=== PATIENT | male | born 1975 | race Caucasian/White ===

== ENCOUNTER → 2017-12-04 | Outpatient (CLI) | payer OTHER ==
[2017-12-04 16:47] LABS: Appearance,Urine Clear (Clear); Bilirubin,Urine Negative (Negative); Blood,Urine Negative (Negative); Color,Urine Light Yellow; Glucose,Urine (UA) Negative (Negative); Ketones,Urine Negative (Negative); Leukocyte Esterase,Urine Negative (Negative); Nitrite,Urine Negative (Negative); Protein,Urine Negative (Negative); Urobilinogen,Urine <2.0 mg/dL (<2.0)
[2017-12-04 16:49] LABS: Basophils # (A) 0.1 k/uL (0-0.2); Basophils % (A) 0 %; Eosinophils # (A) 0.1 k/uL (0-0.7); Eosinophils % (A) 1 %; HCT 49.4 % (39.0-53.0); HGB 15.8 gm/dL (13.0-17.5); Lymphocytes # (A) 1.6 k/uL (1.0-4.8); Lymphocytes % (A) 14 %; MCH 28.6 pg (25.0-35.0); MCHC 31.9 g/dL (31.0-37.0); MCV 89.6 fL (80.0-100.0); Mean Platelet Volume 6.8; Monocytes # (A) 0.3 k/uL (0-1.0); Monocytes % (A) 3 %; Neutrophils # (A) 9.5 k/uL (1.3-7.7); Neutrophils % (A) 82 %; Platelet Count 213 k/uL (150-450); RBC 5.51 m/uL (4.30-5.90); RDW 14.3 % (11.5-15.5); WBC 11.6 k/uL (3.8-10.6)
[2017-12-04 16:57] LABS: Partial Thromboplastin Time 22.6 sec (22.0-30.0); Prothrombin Time 9.5 sec (9.0-12.0)
[2017-12-04 17:24] LABS: Anion Gap 8 mmol/L; Blood Urea Nitrogen 19 mg/dL (9-20); Calcium 9.6 mg/dL (8.4-10.2); Carbon Dioxide 28 mmol/L (22-30); Chloride 104 mmol/L (98-107); Glucose 89 mg/dL (74-99); Potassium 4.5 mmol/L (3.5-5.1); Sodium 140 mmol/L (137-145)
--- NOTE | 2017-12-04 19:29 | XR ---
EXAMINATION TYPE: XR chest 2V DATE OF EXAM: 12/04/2017 COMPARISON: Prior chest x-ray 10/24/2014 HISTORY: Preop TECHNIQUE: Frontal and lateral views of the chest are obtained. FINDINGS: There is no focal air space opacity, pleural effusion, or pneumothorax seen. The cardiac silhouette size is within normal limits. The osseous structures are intact. IMPRESSION: No acute cardiopulmonary process.
== END | disposition home or self-care (01) ==
LOC: RADXRMAIN 15:59
PROVIDERS: ATTEND Orthopaedic Surgery Orthopaedic Surgery of the Spine
DX: Z01.818 Encounter for other preprocedural examination (principal); M50.222 Other cervical disc displacement at C5-C6 level; Z01.812 Encounter for preprocedural laboratory examination
CPT/HCPCS: 36415; 71046; 80048; 81003; 85025; 85610; 85730; 86850; 86900; 86901

== ENCOUNTER 2017-12-12 06:50 | Inpatient (IN) | payer BC, OTHER ==
[2017-12-04 12:03] VITALS: BMI 31.7
[~2017-12-12 06:50] MED LIST: BACITRACIN 50,000 UNIT, POLYMYXIN B 500,000 UNIT in SODIUM CHLORIDE 0.9% IRRIGATIO 1,00... IRRIGATION ONE; DEXAMETHASONE SOD PHOSPHATE 10 MG/ML 1 ML VIAL IV ONE; FAMOTIDINE 20 MG/2 ML VIAL IV PRN; LIDOCAINE 1% 20 ML VIAL (10MG/ML) FOR IV START INTRADERMA PRN; MIDAZOLAM 2 MG/2 ML VIAL IV PRN; ONDANSETRON 4 MG/2 ML VIAL IVP ONE; SCOPOLAMINE 1.5MG/72HR PATCH TRANSDERM ONE; ceFAZolin IN SWFI 2 GM/20 ML SYRINGE IVP ONE
[2017-12-12] MEDS: LACTATED RINGERS 1,000 ML IV SCH ×2 (07:16→08:01)
[2017-12-12] MEDS ORDERED: MIDAZOLAM 2 MG/2 ML VIAL ONE (08:03)
[2017-12-12] MEDS ORDERED: SUCCINYLCHOLINE CHLORIDE VIAL 200 MG/10 ML VIAL IV ONE (08:03)
[2017-12-12] MEDS ORDERED: LIDOCAINE 1% INJ 10MG/ML (20 ML MDV) ONE (08:03)
[2017-12-12] MEDS ORDERED: ePHEDrine SULFATE/0.9% NACL/PF 50 MG/5 ML SYRINGE IV ONE (08:03)
[2017-12-12] MEDS ORDERED: PROPOFOL 10 MG/ML 20 ML VIAL IV ONE (08:03)
[2017-12-12] MEDS ORDERED: fentaNYL (PF) 50 MCG/ML 2 ML AMP ONE (08:03)
[2017-12-12] MEDS ORDERED: DEXAMETHASONE SOD PHOS (MDV) 100 MG/10 ML VIAL ONE (08:03)
[2017-12-12] MEDS ORDERED: LIDOCAINE 0.5% (PF) 5 MG/ML (50 ML SDV) SQ ONE (08:15)
[2017-12-12] MEDS ORDERED: GELATIN SPONGE,ABSORB (LARGE) 1 EACH SPONGE TOPICAL ONE (08:15)
[2017-12-12] MEDS ORDERED: THROMBIN (BOVINE) 5,000 UNIT VIAL TOPICAL ONE (08:15)
--- NOTE | 2017-12-12 09:18 | XR ---
EXAMINATION TYPE: XR cervical spine 1V DATE OF EXAM: 12/12/2017 COMPARISON: NONE HISTORY: Needle placement TECHNIQUE: Four views are submitted. FINDINGS: Surgical instrument seen overlying C5-C6 anterior disc space. Endotracheal tube noted. Hypertrophic a nd degenerative change at C5-C6. Below this level soft tissue artifact obscures visualization. IMPRESSION: 1. Intraoperative localization
[2017-12-12] MEDS ORDERED: HYDROmorphone 4 MG/ML 1 ML SYRINGE IVP PRN ×2 (10:13)
[2017-12-12] MEDS ORDERED: DIAZEPAM 5 MG TAB PO PRN (10:13)
[2017-12-12] MEDS ORDERED: HYDROcodone/APAP 5-325MG 1 EACH TAB PO PRN (10:13)
[2017-12-12] MEDS ORDERED: BENZOCAINE/MENTHOL LOZENG 1 EACH LOZENGE MUCOUS MEM PRN (10:13)
[2017-12-12] MEDS ORDERED: ONDANSETRON 4 MG/2 ML VIAL IVP PRN (10:13)
[2017-12-12] MEDS ORDERED: MAGNESIUM HYDROXIDE 2,400 MG/10 ML CUP PO PRN (10:13)
--- NOTE | 2017-12-12 10:20 | P.OP ---
Date of Procedure: 12/12/17 Preoperative Diagnosis: Herniated nucleus pulposis C56 C6 7 Degenerative disc disease C5 6 C6 7 Cervical stenosis C5 6 C6 7 Neck pain with upper extremity radiculopathy Postoperative Diagnosis: Same Anesthesia: GETA Pathology: none sent Condition: stable Disposition: PACU Description of Procedure: BRIEF OPERATIVE NOTE Preoperative Diagnosis: Herniated nucleus pulposis C5 6 C6 7, cervical stenosis C5 6 C6 7, degenerative disc disease 6 C6 7, neck pain with upper extremity radiculopathy Postoperative Diagnosis: Same Procedure: Anterior cervical decompression with discectomy C5 6 C6 7 and fusion Placement of interbody graft C5 6 C6 7 Application of anterior cervical plate C5 6 C6 7 Surgeon: Dr. Tamez Director Oracle: Taiwo Ceja is present throughout the entire the case persistence during positioning, dissection, exposure, visualization, and all crucial elements of the case as well as closure. Anesthesia: General anesthesia per Dr. Reyes Estimated blood loss: Approximately 50 mL Complications: None apparent Components implanted: K2M [place] anterior cervical plate system with Vikos interbody allograft bone graft and 1 mL of DBX bone putty Disposition: To recovery room in good stable condition. OPERATIVE INDICATIONS The patient has had long-standing issues in their neck and upper extremities. His found have a large disc herniations causing stenosis at C5 6 C6 7. His imaging findings correlated well with his neck and upper extremity symptoms and radiculopathy. The patient has been through conservative treatment. He is not having any significant benefit despite aggressive conservative treatment. We discussed various treatment options including surgery, and the patient wishes to proceed with surgery We discussed the risk, patient's alternatives and benefits of surgery including but not limited to, risk of bleeding risk of infection, risk of need for further surgery, risk of decreased, loss of motion, muscle function, malunion nonunion, hardware failure, nerve damage, paralysis, heart attack, and . OPERATIVE SUMMARY After discussing all the risks, patient alternatives and benefits at length, the patient elected to proceed with surgical intervention, signed informed consent, and presented for their procedure. The patient was seen and examined in the preoperative holding area and the surgical site was marked. The patient was given antibiotics and brought to the operating room. The patient was positioned on the operating room table in a supine position being careful to pad any bony prominences and pressure points. The patient was sedated and intubated by anesthesia in standard fashion. Once the airway and C- spine were stabilized the patient's arms were padded and tucked at her side, with her shoulders gently taped. The head was placed in a donut pad with the neck in good neutral alignment and position. We were careful to maintain the patient's cervical spine and good neutral alignment and position throughout. The patient was prepped and draped in a normal standard fashion. An appropriate timeout and keystone protocol performed. We were able to proceed with the surgery. The local wound area was infiltrated with local anesthetic. An incision was made transversely approximately 2-1/2 cm over the appropriate levels at C6. Dissection was taken down subcutaneously to the level of the platysma which was split in line with its fibers. Dissection was taken with a carotid approach, with the trachea and esophagus medial and the carotid sheath laterally. We dissected down to the anterior surface of the vertebral bodies of C5 6 and 7. Intraoperative x-ray was taken which showed a marker at the appropriate level at C5 6. With the appropriate level positively confirmed, we were able to proceed with discectomy at the appropriate levels starting at C5 6 on moving to C6 7. All of the operative levels were exposed appropriately. The patient had all their twitches back, and there was no evidence of recurrent laryngeal issue. The wound was copiously irrigated and suctioned dry as had been done periodically throughout the case. At the appropriate level/levels, starting at C5 6 and then at C6 7, I established an annulotomy with an 11 blade scalpel. A discectomy was performed with a combination of pituitary rongeurs, curettes, a high-speed bur, and Kerrison rongeurs. The posterior longitudinal ligament was taken down as were any posterior osteophytes. Note was made of significant disc herniation particular to the right side and large posterior and anterior osteophytic spurs which were removed during The decompression. This gave good central and bilateral foraminal decompression. There is no evidence of any dural tear or leak. The endplates were prepared with a high- speed bur. With the endplates in good parallel position, I was able to size for the appropriate size interbody graft. The wound was irrigated and suctioned dry the graft was prepared and malleted into position. It had good alignment and position with the anterior surface flush with the anterior surface of the vertebral bodies. This was done similarly the appropriate levels first at C5 6 and then at C6 7. With the grafts intact, I was able to measure and contour and appropriate sized plate. The plate was positioned at the midline over the appropriate levels at C5 6 and 7. Screw holes were established with a hand drill and drill guide. Screws were placed in good alignment and position with excellent bony purchase. They were seated under the locking device. The construct was checked and found to be stable. Intraoperative x-ray was taken which showed good alignment and position of the implants at the appropriate levels. There was no evidence of any dural tear or leak. Good hemostasis was maintained. The wound was copiously irrigated and suctioned dry as had been done periodically throughout the case. The platysma was closed with absorbable suture. The subcutaneous tissue was closed. The subcuticular tissue was closed with absorbable suture. The wound was cleaned and dried and dressed appropriately. A soft cervical collar was placed appropriately. The patient was woken up by anesthesia, extubated, transferred back gently to their hospital bed and brought to the recovery room in good stable condition. The patient will be admitted to the hospital for appropriate postoperative care , medical management and monitoring. We will continue to follow them closely about the postoperative course.
[2017-12-12] MEDS: HYDROmorphone 0.5 MG/0.5 ML SYRINGE IVP PRN ×4 (10:30→10:52)
--- NOTE | 2017-12-12 10:38 | XR ---
EXAMINATION TYPE: XR cervical spine 1V DATE OF EXAM: 12/12/2017 COMPARISON: NONE HISTORY: Hardware placement TECHNIQUE: One view submitted FINDINGS: Postsurgical change involving the cervical spine are somewhat limited due to overlying soft tissue artifact. Endotracheal tube noted. IMPRESSION: Postoperative change
[2017-12-12] MEDS ORDERED: ONDANSETRON 4 MG/2 ML VIAL IVP ONE (10:42)
[2017-12-12] MEDS ORDERED: LACTATED RINGERS 1,000 ML IV ONE (10:44)
[2017-12-12] MEDS: HYDROcodone/APAP 7.5-325MG 1 EACH TAB PO PRN ×3 (13:36→23:49)
[2017-12-12] MEDS: ceFAZolin IN SWFI 2 GM/20 ML SYRINGE IVP SCH ×2 (17:56→23:50)
[2017-12-12] MEDS: CYCLOBENZAPRINE 10 MG TAB PO SCH ×2 (17:56→21:58)
[2017-12-12] MEDS ORDERED: HYDROmorphone 0.5 MG/0.5 ML SYRINGE IVP PRN (20:11)
[2017-12-12 20:21] VITALS: RESP 18
[2017-12-12] MEDS: SODIUM CHLORIDE 0.9% 1,000 ML IV SCH ×2 (20:37→23:51)
[2017-12-13] MEDS: HYDROcodone/APAP 7.5-325MG 1 EACH TAB PO PRN (07:39)
[2017-12-13 08:17] VITALS: BP 102/66; PULSE 90; TEMP 98.6
[2017-12-13] MEDS: CYCLOBENZAPRINE 10 MG TAB PO SCH (08:23)
[2017-12-13] MEDS: LACTATED RINGERS 1,000 ML IV SCH (08:28)
[2017-12-13] MEDS ORDERED: SENNOSIDES-DOCUSATE SODIUM 1 EACH TAB PO SCH (09:00)
--- NOTE | 2017-12-13 10:50 | P.DS ---
Providers Date of admission: 12/12/17 06:50 Attending physician: Jaycee Tamez Primary care physician: Stated None Hospital Course: The patient presented on the day of admission as per his operative note. He underwent anterior cervical discectomy and fusion at C5 6 and C6 7 for his large disc herniation and cervical stenosis with upper extremity radiculopathy. He says that postoperatively he is doing much better. He says that on to 90% of his pain is significantly improved since his surgery in terms of his neck and his arms. He has some pain posteriorly at his neck and some soreness around his throat as expected. He has been able to tolerate his soft diet and ambulatory in his room and voiding freely. Physical Exam The incision site is clean dry and intact. There is no erythema no drainage. There is no purulence no evidence of infection. His neck is soft and supple Abdomen soft and nontender. Chest has good excursion with deep inspiration and expiration. The patient has active and passive range of motion intact at the upper and lower extremities. There is no acute change in neurologic status. Hospital Course Postoperative day #1 status post anterior cervical discectomy and fusion at C56 and C6 7 for large disc herniation with stenosis at those levels with neck pain and upper extremity radiculopathy. Patient is improving very well pus far and is happy with his results thus far. The patient has been making good progress postoperatively. They have completed the prophylactic antibiotics without any signs or symptoms of infection. The patient has been able to advance their diet, and is tolerating diet adequately. The pain was initially controlled with IV medications and is now controlled appropriately with oral medications. The patient has been able to increase their mobilization. The patient has progressed appropriately. I think they are in good stable condition for discharge today. They will be sent home with appropriate prescriptions. I answered their questions to the best of my ability in a language that they can understand and they are agreeable with the plan. They will follow up as directed In approximately 2 weeks or sooner if he is having a problem. Patient Condition at Discharge: Good Plan - Discharge Summary Discharge Rx Participant: Yes New Discharge Prescriptions: New HYDROcodone/APAP 7.5-325MG [Stryker 7.5-325] 1 tab PO Q6HR PRN #90 tab PRN Reason: Pain No Action HYDROcodone/APAP 7.5-325MG [Stryker 7.5-325] 1 tab PO Q6HR PRN PRN Reason: Pain Cyclobenzaprine [Flexeril] 10 mg PO TID #15 tab Dexamethasone 0.75 mg PO DAILY #12 tab Varenicline [Chantix Starter Pack] 0.5 mg PO BID Discharge Medication List Cyclobenzaprine [Flexeril] 10 mg PO TID #15 tab 10/24/17 [Rx] Dexamethasone 0.75 mg PO DAILY #12 tab 10/24/17 [Rx] HYDROcodone/APAP 7.5-325MG [Stryker 7.5-325] 1 tab PO Q6HR PRN 10/24/17 [History] Varenicline [Chantix Starter Pack] 0.5 mg PO BID 12/12/17 [History] HYDROcodone/APAP 7.5-325MG [Stryker 7.5-325] 1 tab PO Q6HR PRN #90 tab 12/13/17 [ Rx] Follow up Appointment(s)/Referral(s): Jaycee Tamez DO [Doctor of Osteopathic Medicine] - 2 Weeks (With Taiwo Ovalle at Dr. Tamez's office) Patient Instructions/Handouts: *Surgery [facility] - ([facility]) Cervical Surgery Discharge Instructions Activity/Diet/Wound Care/Special Instructions: May shower with waterproof Tegaderm intact. Keep site clean. On Sunday May shower with area uncovered, but leave Steri-Strips intact and allow them to fray off on their own. Do not soak in a tub. May ambulate to tolerance. Avoid heavy or rigorous activity. No overhead work. No repetitive bending twisting or lifting. Discharge Disposition: HOME SELF-CARE
== END 2017-12-13 11:50 | disposition home or self-care (01) | DRG 473 ==
LOC: 2ORMAIN 06:50 → 3SUR 10:12
PROVIDERS: ADMIT Orthopaedic Surgery Orthopaedic Surgery of the Spine; ATTEND Orthopaedic Surgery Orthopaedic Surgery of the Spine
PROC: 0RT30ZZ Resection of Cervical Vertebral Disc, Open Approach (ICD-10-PCS; 2017-12-12)
PROC: 4A11X4G Monitoring of Peripheral Nervous Electrical Activity, Intraoperative, External Approach (ICD-10-PCS; 2017-12-12)
PROC: 0RG20A0 Fusion of 2 or more Cervical Vertebral Joints with Interbody Fusion Device, Anterior Approach, Anterior Column, Open Approach (ICD-10-PCS; principal; 2017-12-12 08:00)
DX: M50.122 Cervical disc disorder at C5-C6 level with radiculopathy (principal); M48.02 Spinal stenosis, cervical region; M43.12 Spondylolisthesis, cervical region; I10 Essential (primary) hypertension; F32.9 Major depressive disorder, single episode, unspecified; M54.6 Pain in thoracic spine; F17.200 Nicotine dependence, unspecified, uncomplicated; Z87.11 Personal history of peptic ulcer disease; Z79.899 Other long term (current) drug therapy
CPT/HCPCS: 72020; 86850; 86900; 86901; 94760

== ENCOUNTER → 2020-05-11 | Outpatient (CLI) | payer OTHER ==
--- NOTE | 2020-05-11 21:50 | MR ---
EXAMINATION TYPE: MR cervical spine wo/w con DATE OF EXAM: 05/11/2020 COMPARISON: 12/14/2015 HISTORY: Pain and burning in shoulders. Hx of Fusion Dec 2017 CONTRAST: Standard multiplanar, multisequence MRI departmental protocol utilizing 10 mL intravenous Gadavist ga dolinium contrast. Cervical vertebra have normal alignment. There is metal artifact from anterior fusion surgery from C5 to C7. Disc spaces are fairly normal. Cervical spinal cord has normal signal pattern. There is no ed matt. There is no spinal stenosis. There is no cervical paraspinal mass. Posterior elements are intact . I see no focal bone destruction. The brainstem appears intact. Contrast images show no pathologic enhancement. IMPRESSION: Anterior fusion surgery. No spinal stenosis. No fracture. Normal-appearing cervical spinal cord. No e vidence of complicating process.
== END | disposition home or self-care (01) ==
LOC: RADMRIMAIN 15:26
PROVIDERS: ATTEND Orthopaedic Surgery Orthopaedic Surgery of the Spine
DX: M50.10 Cervical disc disorder with radiculopathy, unspecified cervical region (principal); M43.12 Spondylolisthesis, cervical region; M50.30 Other cervical disc degeneration, unspecified cervical region; M47.814 Spondylosis without myelopathy or radiculopathy, thoracic region; F17.299 Nicotine dependence, other tobacco product, with unspecified nicotine-induced disorders; Z48.89 Encounter for other specified surgical aftercare; Z98.1 Arthrodesis status
CPT/HCPCS: 72156; A9585

== ENCOUNTER → 2021-12-10 | Outpatient (CLI) | payer OTHER ==
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
== END | disposition home or self-care (01) ==
LOC: RADMRIMAIN 09:35
PROVIDERS: ATTEND Orthopaedic Surgery Orthopaedic Surgery of the Spine
DX: M54.2 Cervicalgia (principal)
CPT/HCPCS: 72156; A9585

== ENCOUNTER → 2021-12-29 | Outpatient (CLI) | payer OTHER ==
--- NOTE | 2021-12-29 14:30 | P.CON ---
Consult Note - . Consult date: 12/29/21 Assessment/Plan:: HISTORY OF PRESENT ILLNESS: 46 yr old male as a referral from Dr. Tamez presents today with neck pain for the past year due to disc bulges, spondylolisthesis, mild spinal canal stenosis and facet arthropathy for evaluation. Pt states his neck pain is localized to the middle aspect of his cervical spine, constant, achy, at a 6 /10 in intensity with radiation of sharp pain towards the right side of his neck and burning pain towards his left shoulder. Pain is provoked with extension of the neck and lifting without extremities. Pain is relieved with medications, topicals, injections in the past, physical therapy 2 months ago, chiropractic treatments, daily workout regimen, repositioning and rest. PMH: OA, GERD PSH: ACDF (2018) SH: Former tobacco user. Occassional ETOH use. No illicit drug use. FH: Non contributory All: NKDA Meds: See list REVIEW OF ORGAN SYSTEMS: CONSTITUTIONAL: No fevers or chills. No recent weight loss. HEENT: No visual acuity loss, eye pain, difficulties with hearing. No nosebleeds. No difficulty swallowing. RESPIRATORY: Denies any troubles with breathing or dyspnea on exertion. CARDIOVASCULAR: Denies any chest pain, palpitations, or recent heart attacks. GASTROINTESTINAL: Denies fatty food intolerance. Has change in bowel habits and gas bloat. GENITOURINARY: Denies any blood in urine. Has increased urinary frequency. NEUROLOGICAL: + numbness and tingling along the distal extremities. No seizure disorders or headaches. MUSCULOSKELETAL: + back pain SKIN: No skin cancer. No rash. PSYCHIATRIC: Denies current depression or suicidal thoughts. ENDOCRINE: Denies current thyroid disorders. Denies any blood sugar glucose intolerance. HEME/LYMPHATIC: Denies any lumps and bumps around the neck. History of deep venous thrombosis. ALLERGY/IMMUNOLOGY: No immunoglobulin therapy. No immune deficiencies. BREAST: Denies current breast lumps, pain or nipple discharge. Physical Examinations : Constitutional : Cooperative , not in acute distress . HEENT: Neck supple. No Lymphadenopathy. Normal thyroid size . Eyes no ptosis , no icterus, no photophobia . Hearing intact. Normal oropharynx. No Thrush. Respiratory : Chest clear to auscultations bilaterally. No wheezing. No rhonchi. Cardiovascular : Regular rate and rhythm , S1 / S2. No S3 . No S4. Gastrointestinal : Abdomen soft. No tenderness. Bowel sounds x 4. No organomegaly . Genitourinary : Deferred. Neurologic : Cranial nerve II to XII intact. No focal neurological deficits. Psychiatric : alert & oriented x 3. Matching mood & appropriate affect. Judgment & insight intact. Lymphatic No Lymphadenopathy. Musculoskeletal : Cervical Spine Motor strength in the deltoid and biceps: Normal right side. Normal Left side Motor strength biceps and the wrist extensors: Normal right side . Normal left side Motor strength in the triceps muscle: Normal right side. Normal left side Deep tendon reflexes: Normal at the biceps. Normal at Brachioradialis. Normal at triceps Mild vertebral body tenderness over C4, C5, C6 Cervical facet loading test: positive bilaterally over C5-C6, C6-C7 with jump reflex Spurling test: positive bilaterally Neck distraction test: positive bilaterally Paula sign: positive bilaterally Lumbar spine Motor strength lower extremities ,thigh and legs 5/5 Right side , 5/5 Left side Deep tendon reflexes : Normal Knee Jerk. Normal Ankle Jerk Vertebral body tenderness over Lumbar facet Loading Test: positive Right / positive Left Range of motion of the lumbar spine Flexion 30 degrees, extension 10 degrees Straight Leg Raise test: Left/ Right positive at degree Rosanna test: positive right / positive left. Severe tenderness over the Sacroiliac joint on the Right / Left sides Gaenslen test: positive bilaterally Seated flexion test: positive bilaterally. Imaging: MRI of the cervical spine without contrast from 12/10/21 reviewed Assessment/ Plan : Recommendation of facet block of the medial branches C5-C6/C6-C7 May need a series of procedures up until RFA to obtain optimal pain relief Risks, benefits of procedure discussed and patient verbalized understanding. Denies anti- coagulant use. Denies medical history of DM type II All questions answered. I have spent greater than 50 minutes on patient care today. Dr Parker was available by phone for the evaluation of this patient. The time was used to review the medical records including relevant urine studies and Prescription history (MAPs), review of the available imaging, evaluation and examination of the patient, coordination of care with the medical staff and if applicable referring physicians, as well as creation of the medical record PQRS Measure Charge Sheet PQRS Narrative: Smoking Status Current every day smoker Pain Intensity [Neck] 6 Scale Used Numeric (1 - 10) Hx Alcohol Use (MH) No Home Medications: Ambulatory Orders Cyclobenzaprine [Flexeril] 10 mg PO DIRECTED PRN 12/12/21
[2021-12-29 15:49] VITALS: BP 154/102; PULSE 82; RESP 18; TEMP 98.3
== END ==
LOC: PNWHC3 13:33
PROVIDERS: ATTEND Physician Assistant Medical
DX: M50.20 Other cervical disc displacement, unspecified cervical region (principal); M43.12 Spondylolisthesis, cervical region; M48.02 Spinal stenosis, cervical region; M19.90 Unspecified osteoarthritis, unspecified site; F17.200 Nicotine dependence, unspecified, uncomplicated
CPT/HCPCS: 99211

== ENCOUNTER 2022-05-12 12:44 | Day surgery (SDC) | payer OTHER ==
[2022-05-11 08:48] VITALS: BMI 46.7
[~2022-05-12 12:44] MED LIST changes: -BACITRACIN 50,000 UNIT, POLYMYXIN B 500,000 UNIT in SODIUM CHLORIDE 0.9% IRRIGATIO 1,00... IRRIGATION ONE; -DEXAMETHASONE SOD PHOSPHATE 10 MG/ML 1 ML VIAL IV ONE; -FAMOTIDINE 20 MG/2 ML VIAL IV PRN; +LACTATED RINGERS 1,000 ML IV SCH; +LIDOCAINE 1% (10MG/ML) FOR IV START INTRADERMA PRN; -LIDOCAINE 1% 20 ML VIAL (10MG/ML) FOR IV START INTRADERMA PRN; -MIDAZOLAM 2 MG/2 ML VIAL IV PRN; -ONDANSETRON 4 MG/2 ML VIAL IVP ONE; -SCOPOLAMINE 1.5MG/72HR PATCH TRANSDERM ONE; -ceFAZolin IN SWFI 2 GM/20 ML SYRINGE IVP ONE
[2022-05-12 13:06] VITALS: TEMP 97.9
--- NOTE | 2022-05-12 13:26 | P.PCN ---
Date of Procedure: 05/12/22 Procedure(s) Performed: Bilateral cervical medial branch block at C5 6, C6-C7 #1 Description of Procedure: Procedure: Cervical Medial Branch Block at bilateral C5 6, C6-C7 #1 Indications: Neck Pain Diagnosis: Cervical spondylosis without myelopathy Imaging: Fluoroscopy was used, images where saved to the medical record Anesthesia: Versed per anesthesia record Description of procedure: The patient was seen and examined in the PO. Procedure risks and benefits were fully reviewed with patient. The patient understands this is a diagnostic as well as a therapeutic procedure and that the goal of the procedure is to inject medication on to the medial branch or small nerves that go into the facet joints. In this way, we can hopefully identify which of these joints, if any, may be contributing to their pain. Informed consent for the procedure was obtained. The patient was taken into the office fluoroscopy procedure room and placed supine on the table. Vital signs were closely monitored during the procedure. The skin over the area was prepped with chlorhexidine and draped in usual sterile manner. Sterile technique was observed throughout procedure. Under fluoroscopic guidance, the target injection areas of the the above noted level's medial branches were visualized in lateral views. Using biplanar fluoroscopy, a 25 gauge 1.5 inch needle was inserted into proper position where the tip of the needle was located at the midpoint of the quadrangle at each level. After negative aspiration for blood and CSF, 0.5cc of 0.5 % Ropivacaine was injected into each of the targeted areas. The needles were withdrawn intact. No complications were noted during the procedure. The patient tolerated procedure well. The patient was placed in supine position and transferred to the recovery area for observation and remained stable until discharged home. Home discharge instructions given to the patient by the staff. The patient was reexamined prior to discharge. Follow up/plan: I have discussed the diagnostic nature of the procedure performed today with the patient in preoperative area. I've explained the possibility for repeating this injection if he has significant analgesia from the #1 procedure. We discussed potential need for radiofrequency ablation in the future as well.
[2022-05-12] MEDS ORDERED: ROPIVACAINE 5 MG/ML 20 ML AMPULE ONE (13:31)
[2022-05-12] MEDS ORDERED: MIDAZOLAM 2 MG/2 ML VIAL ONE (13:32)
[2022-05-12] MEDS ORDERED: IV FLUID CONTINUATION 1,000 ML IV ONE ×2 (13:47)
[2022-05-12 14:29] VITALS: BP 142/97; PULSE 67; RESP 18
--- NOTE | 2022-05-12 15:19 | FL ---
Fluoroscopy HISTORY: Pain 8 seconds fluoroscopy time supplied to the referring clinician. 6 intraoperative C-arm images docume nt the procedure. See dictated report from anesthesia.
== END 2022-05-12 14:35 | disposition home or self-care (01) ==
LOC: ORPAIN 12:44
PROVIDERS: ATTEND Hospitalist
DX: M47.812 Spondylosis without myelopathy or radiculopathy, cervical region (principal); F17.290 Nicotine dependence, other tobacco product, uncomplicated; K21.9 Gastro-esophageal reflux disease without esophagitis; Z79.891 Long term (current) use of opiate analgesic; Z79.899 Other long term (current) drug therapy
CPT/HCPCS: 64490; 64491; J2250; J2795

== ENCOUNTER 2022-05-26 07:04 | Observation (INO) | payer OTHER ==
[2022-05-26] MEDS ORDERED: ASPIRIN 81 MG PO STA (07:16)
--- NOTE | 2022-05-26 07:18 | ED ---
Chest Pain HPI - General Chief Complaint: Chest Pain Stated Complaint: chest pain Time Seen by Provider: 05/26/22 07:11 Source: patient, RN notes reviewed Mode of arrival: wheelchair Limitations: no limitations - History of Present Illness Initial Comments: 46-year-old male presents emergency Department chief complaint of chest pain. Patient states his been having some intermittent symptoms last couple weeks and which she had recent viral he had hypertension that she is PCP yesterday who ordered some labs, medications. Patient states that coronary symptoms worsen states he feels more fatigued, having increasing chest pressure, pain. States that it's centralized chest pain region. Patient denies any prior cardiac disease. Patient denies fevers chills no cough or cold like symptoms. Patient denies any nausea vomiting diarrhea constipation patient states that he noticed some swelling of his legs. Denies any history of DVT or PE. Patient offers no other complaints. - Related Data Home Medications Medication Instructions Recorded Confirmed Cyclobenzaprine [Flexeril] 10 mg PO BID PRN 12/12/21 05/26/22 HYDROcodone/APAP 5-325MG [[place] 1 tab PO BID PRN 05/11/22 05/26/22 5-325] lisinopriL [Prinivil] 10 mg PO DIRECTED 05/26/22 05/26/22 Allergies Allergy/AdvReac Type Severity Reaction Status Date / Time No Known Allergies Allergy Verified 05/26/22 07:57 Review of Systems ROS Statement: Those systems with pertinent positive or pertinent negative responses have been documented in the HPI. ROS Other: All systems not noted in ROS Statement are negative. Past Medical History Past Medical History: GERD/Reflux, Hypertension, Osteoarthritis (OA) Additional Past Medical History / Comment(s): pain "middle of back, L shoulder blade and down left arm into hand" History of Any Multi-Drug Resistant Organisms: None Reported Past Surgical History: Orthopedic Surgery Additional Past Surgical History / Comment(s): RT WRIST ganglion cyst removal. PAIN CLINIC INJECTIONS-. EGD. NECK SURGERY- Past Anesthesia/Blood Transfusion Reactions: Previous Problems w/ Anesthesia Additional Past Anesthesia/Blood Transfusion Reaction / Comment(s): WOKE UP DURING WRIST SX Past Psychological History: Depression Smoking Status: Vaper Past Alcohol Use History: Rare Past Drug Use History: None Reported - Past Family History Mother Family Medical History: Cancer, Hypertension Additional Family Medical History / Comment(s): skin CA removed General Exam Limitations: no limitations General appearance: alert, in no apparent distress Head exam: Present: atraumatic, normocephalic, normal inspection Eye exam: Present: normal appearance, PERRL, EOMI. Absent: scleral icterus, conjunctival injection, periorbital swelling ENT exam: Present: normal exam, mucous membranes moist Neck exam: Present: normal inspection, full ROM. Absent: tenderness, meningismus, lymphadenopathy Respiratory exam: Present: normal lung sounds bilaterally. Absent: respiratory distress, wheezes, rales, rhonchi, stridor Cardiovascular Exam: Present: regular rate, normal rhythm, normal heart sounds. Absent: systolic murmur, diastolic murmur, rubs, gallop, clicks GI/Abdominal exam: Present: soft, normal bowel sounds. Absent: distended, tenderness, guarding, rebound, rigid Neurological exam: Present: alert, oriented X3, CN II-XII intact, reflexes normal. Absent: motor sensory deficit Skin exam: Present: warm, dry, intact, normal color. Absent: rash Course Vital Signs 05/26/22 05/26/22 05/26/22 07:05 07:45 08:15 Temperature 97.8 F Pulse Rate 74 66 66 Respiratory 18 18 20 Rate Blood Pressure 186/123 150/110 148/106 O2 Sat by Pulse 97 95 96 Oximetry Chest Pain MDM - MDM 46-year-old male presented for chest pain. Patient's been having increasing symptoms, fatigue, hypertension. Patient will be admitted for cardiac rule out including cardiogram, cartilage evaluation, repeat troponin. Disposition Clinical Impression: Chest pain, Hypertension Disposition: ADMITTED IP TO THIS [facility] Condition: Fair Referrals: Nonstaff,Physician [REFERRING] - 1-2 days Time of Disposition: 08:46
[2022-05-26 07:35] LABS: Basophils # (A) 0.1 k/uL (0-0.2); Basophils % (A) 1 %; Eosinophils # (A) 0.2 k/uL (0-0.7); Eosinophils % (A) 2 %; HGB 16.8 gm/dL (13.0-17.5); Lymphocytes # (A) 2.4 k/uL (1.0-4.8); Lymphocytes % (A) 33 %; MCH 28.4 pg (25.0-35.0); MCHC 33.5 g/dL (31.0-37.0); MCV 84.7 fL (80.0-100.0); Mean Platelet Volume 6.8; Monocytes # (A) 0.5 k/uL (0-1.0); Monocytes % (A) 7 %; Neutrophils # (A) 3.9 k/uL (1.3-7.7); Neutrophils % (A) 55 %; Platelet Count 202 k/uL (150-450); RBC 5.91 m/uL (4.30-5.90); RDW 12.6 % (11.5-15.5); WBC 7.1 k/uL (3.8-10.6)
[2022-05-26 07:47] LABS: ALT 36 U/L (4-49); African American GFR (CKD) >90 (>60 ml/min/1.73 sqM); Albumin 4.7 g/dL (3.5-5.0); Anion Gap 8 mmol/L; Blood Urea Nitrogen 14 mg/dL (9-20); Calcium 9.1 mg/dL (8.4-10.2); Carbon Dioxide 22 mmol/L (22-30); Chloride 112 mmol/L (98-107); Glucose 112 mg/dL (74-99); Lipase 97 U/L (23-300); Non-African American GFR(CKD) >90 (>60 ml/min/1.73 sqM); Sodium 142 mmol/L (137-145); Total Bilirubin 0.8 mg/dL (0.2-1.3); Total Protein 7.5 g/dL (6.3-8.2)
[2022-05-26 07:50] LABS: Partial Thromboplastin Time 25.4 sec (22.0-30.0)
[2022-05-26 08:06] LABS: Potassium 4.5 mmol/L (3.5-5.1)
[2022-05-26 08:07] LABS: AST 37 U/L (17-59); Alkaline Phosphatase 55 U/L (38-126); Magnesium 2.2 mg/dL (1.6-2.3)
--- NOTE | 2022-05-26 08:14 | XR ---
EXAMINATION TYPE: XR chest 2V DATE OF EXAM: 05/26/2022 COMPARISON: Chest x-ray 12/04/2017 HISTORY: Chest pain TECHNIQUE: Frontal and lateral views of the chest are obtained. FINDINGS: There is no focal air space opacity, pleural effusion, or pneumothorax seen. The cardiac silhouette size is within normal limits. The osseous structures are intact, patient shows postop ch angel to the cervical spine. There are overlying cardiac leads. IMPRESSION: No acute cardiopulmonary process.
[2022-05-26] MEDS ORDERED: ENALAPRILAT 1.25 MG/ML 1 ML VIAL IVP STA (08:46)
[2022-05-26] MEDS ORDERED: NITROGLYCERIN SL TABS 0.4 MG TAB SUBLINGUAL PRN (08:49)
[2022-05-26] MEDS ORDERED: HYDROcodone/APAP 5-325MG 1 EACH TAB PO PRN (08:50)
[2022-05-26] MEDS ORDERED: CYCLOBENZAPRINE 10 MG TAB PO PRN (08:50)
[2022-05-26] MEDS ORDERED: lisinopriL 10 MG TAB PO SCH (10:00)
[2022-05-26] MEDS ORDERED: ATORVASTATIN 80 MG TAB PO STA (10:42)
[2022-05-26] MEDS ORDERED: ALPRAZolam 0.5 MG TAB PO PRN (10:42)
[2022-05-26] MEDS ORDERED: ALPRAZolam 0.25 MG TAB PO PRN (10:42)
[2022-05-26] MEDS ORDERED: SODIUM CHLORIDE 0.9% 1,000 ML in EMPTY BAG 1 BAG IV SCH (10:45)
[2022-05-26 11:07] VITALS: RESP 18
--- NOTE | 2022-05-26 11:56 | P.CRDCN ---
History of Present Illness History of present illness: HISTORY OF PRESENTING ILLNESS This is a pleasant 46-year-old male with past medical history of hypertension, neck/spine injury s/p C4-C7 fusions in the past, chronic nicotine dependence. He does not follow with a correctional program officer. We have been asked to see the patient in consultation for chest pain. Patient presents emergency department with complaints of chest tightness. He states he began to have a chest "pinching" about 1 month ago. He states he has not seen a doctor in a long time. He established a primary care provider yesterday, Dr. Da Silva and was prescribed Lisinopril (has not taken the prescription yet). This morning around 5:00am, patient began to have chest tightness and chest pressure. It is nonradiating, nonexertional. He had associated mild shortness of breath and diaphoresis. It lasted for a few hours, he presents to the emergency department for further evaluation. His blood pressure to to be elevated at 186/123. He was given IV Vasotec 1.25 mg. He had some improvement in his symptoms. He had re-occurrence of chest discomfort and was give sublingual nitro, his chest pressure resolved after nitro was given. He denies any history of CAD, IA, Stroke or Diabetes. He current smokes vapes. Denies any alcohol or illicit drug use. Denies family history of heart disease DIAGNOSTICS * EKG reveals sinus rhythm, heart rate 69, mild ST depression in inferior leads. * Telemetry tracings at bedside in ER reveal sinus rhythm * Chest xray no acute cardiopulmonary process * Laboratory reviewed, initial troponin negative, CBC unremarkable, sodium 142, potassium 4.5, BUN 14, serum creatinine 0.7, magnesium 2.2, proBNP 28, d-dimer negative * Current home cardiac medications include lisinopril 10 mg daily REVIEW OF SYSTEMS At the time of my exam: CONSTITUTIONAL: Denies fever or chills. Reports diaphoresis CARDIOVASCULAR: + chest pain, Denies shortness of breath, orthopnea, PND or palpitations. RESPIRATORY: Denies cough. GASTROINTESTINAL: Denies abdominal pain, diarrhea, constipation, nausea or vomiting. MUSCULOSKELETAL: Denies myalgias. NEUROLOGIC: Denies numbness, tingling, headacbe or weakness. ENDOCRINE: Denies fatigue, weight change, polydipsia or polyurina. GENITOURINARY: Denies burning, hematuria or urgency with micturation. HEMATOLOGIC: Denies history of anemia or bleeding. PHYSICAL EXAMINATION Blood pressure 133/96, heart rate 65, afebrile, saturation 96% on room air CONSTITUTIONAL: No apparent distress. HEENT: Head is normocephalic. Pupils are equal, round. Sclerae anicteric. Mucous membranes of the mouth are moist. No JVD. No carotid bruit. CHEST EXAMINATION: Lungs are clear to auscultation. No chest wall tenderness is noted on palpation or with deep breathing. HEART EXAMINATION: Regular rate and rhythm. S1, S2 heard. No murmurs, gallops or rub. ABDOMEN: Soft, nontender. Positive bowel sounds. EXTREMITIES: 2+ peripheral pulses, no lower extremity edema and no calf tenderness. NEUROLOGIC EXAMINATION: Patient is awake, alert and oriented x3. ASSESSMENT Chest pain, relief with nitro, mild ST depression noted on EKG concerning for unstable angina Hypertension History of neck surgery, chronic neck pain Chronic nicotine dependence PLAN Trend troponins Obtain 2D echocardiogram and doppler study to assess cardiac structure and function. Continue Lisinopril, monitor BP Aspirin, statin Lipid panel Check TSH Plan for cardiac catheterization today with Dr. Thomas Keep NPO I have discussed the risks, benefits and alternative therapies for the above- mentioned procedure and for both sedation/analgesia as well as necessary blood product administration, if indicated, as they pertain to this patient. The patient has indicated understanding and acceptance of the risks and procedures discussed. Questions have been answered appropriately and he is agreeable to move forward with the above-stated procedure. Further recommendations based on clinical course Nurse practitioner note has been reviewed by physician. Signing provider agrees with the documented findings, assessment, and plan of care. Past Medical History Past Medical History: GERD/Reflux, Hypertension, Osteoarthritis (OA) Additional Past Medical History / Comment(s): pain "middle of back, L shoulder blade and down left arm into hand" History of Any Multi-Drug Resistant Organisms: None Reported Past Surgical History: Orthopedic Surgery Additional Past Surgical History / Comment(s): RT WRIST ganglion cyst removal. PAIN CLINIC INJECTIONS-. EGD. NECK SURGERY- Past Anesthesia/Blood Transfusion Reactions: Previous Problems w/ Anesthesia Additional Past Anesthesia/Blood Transfusion Reaction / Comment(s): WOKE UP DURING WRIST SX Past Psychological History: Depression Smoking Status: Vaper Past Alcohol Use History: Rare Past Drug Use History: None Reported - Past Family History Mother Family Medical History: Cancer, Hypertension Additional Family Medical History / Comment(s): skin CA removed Medications and Allergies Home Medications Medication Instructions Recorded Confirmed Type Cyclobenzaprine [Flexeril] 10 mg PO BID PRN 12/12/21 05/26/22 History HYDROcodone/APAP 5-325MG [[place] 1 tab PO BID PRN 05/11/22 05/26/22 History 5-325] lisinopriL [Prinivil] 10 mg PO DIRECTED 05/26/22 05/26/22 History Allergies Allergy/AdvReac Type Severity Reaction Status Date / Time No Known Allergies Allergy Verified 05/26/22 07:57 Physical Exam Vitals: Vital Signs Temp Pulse Resp BP Pulse Ox 05/26/22 09:10 68 18 146/111 99 05/26/22 08:15 66 20 148/106 96 05/26/22 07:45 66 18 150/110 95 05/26/22 07:05 97.8 F 74 18 186/123 97 Intake and Output 05/25/22 05/26/22 05/26/22 22:59 06:59 14:59 Other: Weight 99.79 kg Results 05/26/22 07:30 05/26/22 07:30 Cardiac Enzymes 05/26/22 05/26/22 Range/Units 07:30 07:30 AST 37 (17-59) U/L Troponin I <0.012 (0.000-0.034) ng/mL Coagulation 05/26/22 Range/Units 07:30 PT 11.0 (9.0-12.0) sec APTT 25.4 (22.0-30.0) sec CBC 05/26/22 Range/Units 07:30 WBC 7.1 (3.8-10.6) k/uL RBC 5.91 H (4.30-5.90) m/uL Hgb 16.8 (13.0-17.5) gm/dL Hct 50.0 (39.0-53.0) % Plt Count 202 (150-450) k/uL Comprehensive Metabolic Panel 05/26/22 Range/Units 07:30 Sodium 142 (137-145) mmol/L Potassium 4.5 (3.5-5.1) mmol/L Chloride 112 H (98-107) mmol/L Carbon Dioxide 22 (22-30) mmol/L BUN 14 (9-20) mg/dL Creatinine 0.78 (0.66-1.25) mg/dL Glucose 112 H (74-99) mg/dL Calcium 9.1 (8.4-10.2) mg/dL AST 37 (17-59) U/L ALT 36 (4-49) U/L Alkaline Phosphatase 55 (38-126) U/L Total Protein 7.5 (6.3-8.2) g/dL Albumin 4.7 (3.5-5.0) g/dL Current Medications Generic Name Dose Route Start Last Admin Trade Name Freq PRN Reason Stop Dose Admin Hydrocodone Bitart/Acetaminophen 1 each 05/26/22 08:50 05/26/22 09:17 Hydrocodone/Apap 5-325mg 1 Each Tab PO 1 each BID PRN Administration Pain Aspirin 325 mg 05/27/22 09:00 Aspirin 325 Mg Tab PO DAILY NENA Cyclobenzaprine HCl 10 mg 05/26/22 08:50 Cyclobenzaprine 10 Mg Tab PO BID PRN Muscle Spasm Lisinopril 10 mg 05/26/22 09:00 Lisinopril 10 Mg Tab PO DIRECTED NENA Nitroglycerin 0.4 mg 05/26/22 08:49 Nitroglycerin Sl Tabs 0.4 Mg Tab SUBLINGUAL Q5M PRN Chest Pain Intake and Output 05/25/22 05/26/22 05/26/22 22:59 06:59 14:59 Other: Weight 99.79 kg Patient Weight 05/27/22 06:59 Weight 99.79 kg 05/26/22 07:30 05/26/22 07:30
--- NOTE | 2022-05-26 12:26 | CA ---
Transthoracic Echo Report Name: Estuardo Kingston Age: 46 Gender: M : 1975 Exam Date: 05/26/2022 10:00 Exam Location: [facility] Ht (in): 69 Wt (lb): 220 Ordering Physician: Jarvis Knapp Attending/Referring Phys: [id number], Ra Inspector Cold Working rBigette Anderson, [facility] Procedure CPT: Indications: Chest Pain Cardiac Hx: Technical Quality: Good Contrast 1: Total Dose (mL): Contrast 2: Total Dose (mL): MEASUREMENTS (Male / Female) Normal Values 2D ECHO LV Diastolic Diameter PLAX 4.1 cm 4.2 - 5.9 / 3.9 - 5.3 cm LV Systolic Diameter PLAX 2.9 cm IVS Diastolic Thickness 1.3 cm 0.6 - 1.0 / 0.6 - 0.9 cm LVPW Diastolic Thickness 1.3 cm 0.6 - 1.0 / 0.6 - 0.9 cm LV Relative Wall Thickness 0.6 RV Internal Dim ED PLAX 3.6 cm LA Systolic Diameter LX 3.6 cm 3.0 - 4.0 / 2.7 - 3.8 cm LA Volume 57.6 cm??? 18 - 58 / 22 - 52 cm??? M-MODE Aortic Root Diameter MM 3.2 cm MV E Point Septal Separation 0.2 cm AV Cusp Separation MM 1.9 cm DOPPLER AV Peak Velocity 116.3 cm/s AV Peak Gradient 5.4 mmHg MV Area PHT 4.4 cm??? Mitral E Point Velocity 59.9 cm/s Mitral A Point Velocity 64.8 cm/s Mitral E to A Ratio 0.9 MV Deceleration Time 171.0 ms MV E' Velocity 10.0 cm/s Mitral E to MV E' Ratio 6.0 TR Peak Velocity 232.4 cm/s TR Peak Gradient 21.6 mmHg Right Ventricular Systolic Press 25.7 mmHg FINDINGS Left Ventricle Left ventricular ejection fraction is estimated at 60-65 %. Left ventricular cavity size normal. Mild concentric left ventricular hypertrophy. Mildly increased septal wall thickness. Right Ventricle Mild right ventricular dilatation. Right ventricular systolic pressure within normal limits. Right Atrium Normal right atrial size. Left Atrium Normal left atrial size. No evidence for an atrial septal defect. Mitral Valve Structurally normal mitral valve. No mitral stenosis, regurgitation or prolapse. Aortic Valve Trileaflet aortic valve. No aortic valve stenosis or regurgitation. Tricuspid Valve Mild tricuspid regurgitation. Pulmonic Valve Structurally normal pulmonic valve. Pericardium Normal pericardium. No pericardial effusion. Aorta Normal size aortic root and proximal ascending aorta. CONCLUSIONS Mild LVH Normal left ventricular ejection fraction 60-65% No mitral regurgitation Mild tricuspid regurgitation RVSP 25 Previewed by: Dr. Harvey Thomas DO (Electronically Signed) Final Date: 26 May 2022 12:25
[2022-05-26] MEDS ORDERED: IV FLUID CONTINUATION 900 ML IV ONE (12:30)
[2022-05-26] MEDS ORDERED: fentaNYL (PF) 50 MCG/ML 2 ML AMP IV ONE (12:57)
[2022-05-26] MEDS ORDERED: MIDAZOLAM 2 MG/2 ML VIAL IV ONE ×2 (12:57)
[2022-05-26] MEDS ORDERED: LIDOCAINE 1% INJ 10MG/ML (5 ML VIAL-PF) SQ ONE (12:58)
[2022-05-26] MEDS ORDERED: VERAPAMIL SYRINGE (5 MG/10 ML) INTRAARTER ONE (13:02)
[2022-05-26] MEDS ORDERED: HEPARIN SODIUM 1,000 UN/ML (10ML VL) IV ONE (13:03)
--- NOTE | 2022-05-26 13:17 | P.CARDCATH ---
Description of Procedure: PROCEDURES PERFORMED: Left heart catheterization, bilateral coronary angiography INDICATION: Chest pain improved with nitroglycerin concerning for angina CONSENT:I have discussed the risks, benefits and alternative therapies for the above-mentioned procedure and for both sedation/analgesia as well as necessary blood product administration, if indicated, as they pertain to this patient. The patient has indicated understanding and acceptance of the risks and procedures discussed. PROCEDURE: After the risks, benefits and alternatives of the above mentioned procedure explained in detail with the patient, informed consent was obtained. Patient was taken to the catheterization lab and prepped and draped in usual fashion. 1% lidocaine was used to anesthetize the right radial artery. A 6- [place] sheath was placed in the right radial artery using modified Seldinger technique. Left coronary angiography was performed with a 5-[place] JL 3.5 catheter and right coronary angiography was performed with a 5-[place] JR5 catheter in various views. A 5-[place] FR5 catheter was inserted into the left ventricle and pressure measurements were obtained. The right radial sheath was removed and a TR band was placed with hemostasis achieved. The patient tolerated the procedure well. Patient was transported back to the post catheterization holding area in stable condition. Conscious Sedation: Patient was monitored under the direct supervision of vision of myself for conscious sedation using Versed and fentanyl for a total duration of 14 minutes HEMODYNAMICS: Aorta 142/90 LV: 138/5, LVEDP 18 SELECTIVE CORONARY ARTERIOGRAPHY: LEFT MAIN: The left main is a large caliber vessel which bifurcates into the LAD and circumflex. There is no significant stenosis. LEFT ANTERIOR DESCENDING CORONARY ARTERY: LAD is a large caliber vessel which wraps around to the apex. There is minimal irregularity of the proximal LAD with 10% stenosis and otherwise normal. LEFT CIRCUMFLEX CORONARY ARTERY: Left circumflex is a moderate caliber vessel without significant stenosis. RIGHT CORONARY ARTERY: The right coronary artery is a large caliber vessel which gives off a PDA and PLV branch and is the dominant vessel. There is no significant stenosis. FINAL IMPRESSION: 1. Normal coronary arteries as described above other than a minimal 10% stenosis of the proximal LAD 2. Mildly elevated left sided filling pressures PLAN: 1. Aggressive risk factor modification per most recent ACC/AHA guidelines. 2. Follow-up in the office in 1-2 weeks.
[2022-05-26] MEDS ORDERED: IOPAMIDOL-370 125ML BTL INJ ONE (13:21)
[2022-05-26] MEDS ORDERED: RX INFO: IV CONTRAST WAS GIVEN 1 EACH MISC MISCELLANE PRN (13:52)
[2022-05-26] MEDS ORDERED: SODIUM CHLORIDE 0.9% 1,000 ML IV SCH (14:00)
[2022-05-26 14:29] VITALS: TEMP 97.8
[2022-05-26 18:00] VITALS: BP 132/84; PULSE 75
--- NOTE | 2022-05-26 19:17 | HP ---
HISTORY AND PHYSICAL 46-year-old white male history of hypertension, neck spinal injury, C4-C7 fusion, nicotine addiction, came in with chest pain, chest tightness, pinching about a month ago. She has seen a physician a couple days ago, had chest tightness and pressure. Despite this he came in with diaphoresis. He was admitted. He was given Vasotec in the ER for high blood pressure. He was evaluated by Cardiology, underwent heart catheterization, which showed no blockages. REVIEW OF SYMPTOMS: 14-point review of systems otherwise negative. He has a negative D-dimer. Blood pressure is 133/96, heart rate 60 to 65, O2 96% on room air. HEENT normocephalic, atraumatic. LUNGS are clear. CARDIOVASCULAR S1, S2. ABDOMEN is soft. NEUROLOGIC: Cranial nerves intact. ASSESSMENT: 1. Atypical chest pain. 2. Mild ST-T depression. 3. Hypertension. 4. History of neck surgery. 5. Nicotine addiction. PLAN: Trend troponins. 2D echo was done, which is normal. Lisinopril for blood pressure, aspirin, statins. Lipid panel. Heart catheterization showed no blockages. He will probably be able to be sent home later today as he has no significant obstruction and a negative D-dimer. MMODL / IJN: [id number] /
[2022-05-27] MEDS ORDERED: HEPARIN SODIUM,PORCINE 2,500 UNIT in SODIUM CHLORIDE 0.9% 250 ML IRRIGATION PRN (07:00)
[2022-05-27] MEDS ORDERED: HEPARIN SODIUM,PORCINE 10,000 UNIT in SODIUM CHLORIDE 0.9% 1,000 ML IRRIGATION PRN (07:00)
[2022-05-27] MEDS ORDERED: ASPIRIN 325 MG TAB PO SCH (09:00)
[2022-05-27] MEDS ORDERED: ASPIRIN 81 MG PO SCH (09:00)
[2022-05-27] MEDS ORDERED: lisinopriL 20 MG TAB PO SCH (09:00)
== END 2022-05-26 18:50 | disposition home or self-care (01) ==
LOC: EC 07:04 → 6NMEDSUR 09:09
PROVIDERS: ADMIT Family Medicine; ATTEND Family Medicine
DX: I25.110 Atherosclerotic heart disease of native coronary artery with unstable angina pectoris (principal); I10 Essential (primary) hypertension; F17.200 Nicotine dependence, unspecified, uncomplicated; Z98.1 Arthrodesis status; I21.3 ST elevation (STEMI) myocardial infarction of unspecified site; Z79.899 Other long term (current) drug therapy
CPT/HCPCS: 96374; 99285; 36415; 93005; 93306; 93458; 85379; 83880; 80053; 84443; 83690; 83735; 84484; 85025; 85610; 85730; 71046; G0378; C1769; C1894; J2250; J2001; J3010; J1644; Q9967

== ENCOUNTER 2022-06-02 10:52 | Emergency (ER) | payer OTHER ==
[2022-06-02 11:17] VITALS: BP 133/98; PULSE 80; RESP 18; TEMP 97.3
--- NOTE | 2022-06-02 11:36 | ED ---
General Adult HPI - General Chief complaint: Recheck/Abnormal Lab/Rx Stated complaint: hypertension Time Seen by Provider: 06/02/22 11:13 Source: patient Mode of arrival: ambulatory Limitations: no limitations - History of Present Illness Initial comments: Dictation was produced using [employer] dictation software. please excuse any grammatical, word or spelling errors. Chief Complaint: 46-year-old male presents emergency department for hypertension History of Present Illness: 46-year-old male presents emergency department for hypertension. Patient butted digital blood pressure cuff from [employer]. Patient states that he was recently admitted to the hospital where he was treated for hypertension. Patient had his medications adjusted and increased. He's been monitoring his blood pressures at home using this automated blood pressure monitor. States that today he had high blood pressures of 170s over 110s. Patient denies any symptoms. No chest pain, shortness breath, no thunderclap headache, no strokelike symptoms. He contacted his auto porter. Spoke with racing secretary who instructed him to go to the emergency room. The ROS documented in this emergency department record has been reviewed and confirmed by me. Those systems with pertinent positive or negative responses have been documented in the HPI. All other systems are other negative and/or noncontributory. PHYSICAL EXAM: General Impression: Alert and oriented x3, not in acute distress HEENT: Normocephalic atraumatic, extra-ocular movements intact, pupils equal and reactive to light bilaterally, mucous membranes moist. Cardiovascular: Heart regular rate and rhythm Chest: Able to complete full sentences, no retractions, no tachypnea Abdomen: abdomen soft, non-tender, non-distended, no organomegaly Musculoskeletal: Pulses present and equal in all extremities, no peripheral edema Motor: no focal deficits noted Neurological: CN II-XII grossly intact, no focal motor or sensory deficits noted Skin: Intact with no visualized rashes Psych: Normal affect and mood ED course: 46-year-old male presents emergency department for hypertension. He denies any symptoms of hypertensive emergency. Patient has a history of hypertension. His blood pressure upon arrival is 133/98. Rest of vital signs within acceptable limits. Patient's blood pressure was further monitored in the ER all found to be within normal limits. He is not having any symptoms of hypertensive emergency. Patient be discharged. Patient did use his automated blood pressure cuff at the bedside with inconsistent measurements. Is concerned that his blood pressure cuff is giving falsely elevated readings. Nonetheless, he is told to address this with his auto porter and primary care doctor. - Related Data Home Medications Medication Instructions Recorded Confirmed Cyclobenzaprine [Flexeril] 10 mg PO BID PRN 12/12/21 05/26/22 HYDROcodone/APAP 5-325MG [[place] 1 tab PO BID PRN 05/11/22 05/26/22 5-325] Previous Rx's Medication Instructions Recorded lisinopriL [Zestril] 20 mg PO DAILY 90 Days #90 tab 05/26/22 Allergies Allergy/AdvReac Type Severity Reaction Status Date / Time No Known Allergies Allergy Verified 05/26/22 07:57 Review of Systems ROS Statement: Those systems with pertinent positive or pertinent negative responses have been documented in the HPI. ROS Other: All systems not noted in ROS Statement are negative. Past Medical History Past Medical History: GERD/Reflux, Hypertension, Osteoarthritis (OA) Additional Past Medical History / Comment(s): pain "middle of back, L shoulder blade and down left arm into hand" History of Any Multi-Drug Resistant Organisms: None Reported Past Surgical History: Orthopedic Surgery Additional Past Surgical History / Comment(s): RT WRIST ganglion cyst removal. PAIN CLINIC INJECTIONS-. EGD. NECK SURGERY- Past Anesthesia/Blood Transfusion Reactions: Previous Problems w/ Anesthesia Additional Past Anesthesia/Blood Transfusion Reaction / Comment(s): WOKE UP DURING WRIST SX Past Psychological History: Depression Smoking Status: Vaper Past Alcohol Use History: Rare Past Drug Use History: None Reported - Past Family History Mother Family Medical History: Cancer, Hypertension Additional Family Medical History / Comment(s): skin CA removed General Exam Limitations: no limitations Course Vital Signs 06/02/22 11:11 Temperature 97.3 F L Pulse Rate 80 Respiratory 18 Rate Blood Pressure 133/98 O2 Sat by Pulse 94 L Oximetry Disposition Clinical Impression: Hypertension Disposition: HOME SELF-CARE Condition: Good Instructions (If sedation given, give patient instructions): Hypertension (ED) Is patient prescribed a controlled substance at d/c from ED?: No Referrals: None,Stated [Primary Care Provider] - 1-2 days Time of Disposition: 11:36
== END 2022-06-02 11:43 | disposition home or self-care (01) ==
LOC: EC 10:52
DX: I10 Essential (primary) hypertension (principal); F17.290 Nicotine dependence, other tobacco product, uncomplicated
CPT/HCPCS: 99283

== ENCOUNTER 2023-03-16 11:46 | Observation (INO) | payer OTHER ==
[2023-03-16 12:07] LABS: Glucose,Whole Blood 96 mg/dL (70-110)
[2023-03-16] MEDS ORDERED: MECLIZINE 12.5 MG TAB PO STA (12:23)
[2023-03-16] MEDS ORDERED: ONDANSETRON 4 MG/2 ML VIAL IVP STA (12:23)
[2023-03-16] MEDS ORDERED: SODIUM CHLORIDE 0.9% 1,000 ML IV STA (12:23)
[2023-03-16 12:49] LABS: Basophils % (A) 1 %; Eosinophils # (A) 0.1 k/uL (0-0.7); Eosinophils % (A) 1 %; HCT 44.9 % (39.0-53.0); HGB 15.6 gm/dL (13.0-17.5); Lymphocytes # (A) 2.2 k/uL (1.0-4.8); Lymphocytes % (A) 24 %; MCHC 34.7 g/dL (31.0-37.0); MCV 83.6 fL (80.0-100.0); Mean Platelet Volume 7.2; Monocytes # (A) 0.4 k/uL (0-1.0); Monocytes % (A) 5 %; Neutrophils # (A) 6.3 k/uL (1.3-7.7); Neutrophils % (A) 68 %; Platelet Count 248 k/uL (150-450); RBC 5.37 m/uL (4.30-5.90); RDW 13.1 % (11.5-15.5); WBC 9.2 k/uL (3.8-10.6)
--- NOTE | 2023-03-16 13:03 | CT ---
EXAMINATION TYPE: CT brain wo con DATE OF EXAM: 03/16/2023 COMPARISON: None HISTORY: 47-year-old male with neurologic deficit, acute, CVA suspected. TECHNIQUE: Examination was done in axial plane without intravenous contrast. Coronal and sagittal r econstructions performed. CT DLP: 1143.6 mGycm Automated exposure control for dose reduction was used. FINDINGS: There is no evidence of acute intracranial hemorrhage, acute ischemic changes, mass, mass-effect, or extra-axial fluid collection. There is no effacement of cerebral sulci or basal subarachnoid cister ns. There is no hydrocephalus. There is no midline shift. East-white matter distinction is preserv ed. Trace mucosal thickening maxillary sinuses. Leftward nasal septal deviation. Mastoid air cells well p neumatized. Orbits and globes are intact. IMPRESSION: No acute intracranial abnormality seen.
--- NOTE | 2023-03-16 13:07 | XR ---
EXAMINATION TYPE: XR chest 2V DATE OF EXAM: 03/16/2023 COMPARISON: NONE TECHNIQUE: PA and lateral views submitted. HISTORY: Altered mental status FINDINGS: The lungs are clear and there is no pneumothorax, pleural effusion, or focal pneumonia. Heart size normal and no overt failure. Osseous structures demonstrate hypertrophic and degenerative changes of the spine. Hyperinflation suggests COPD. Postsurgical change overlying the cervical spine. IMPRESSION: 1. No acute process.
[2023-03-16 13:16] LABS: Partial Thromboplastin Time 24.3 sec (22.0-30.0); Prothrombin Time 10.8 sec (9.0-12.0)
[2023-03-16 13:19] LABS: ALT 41 U/L (4-49); AST 39 U/L (17-59); African American GFR (CKD) >90 (>60 ml/min/1.73 sqM); Albumin 4.7 g/dL (3.5-5.0); Alkaline Phosphatase 58 U/L (38-126); Anion Gap 11 mmol/L; Blood Urea Nitrogen 14 mg/dL (9-20); Calcium 9.3 mg/dL (8.4-10.2); Carbon Dioxide 23 mmol/L (22-30); Chloride 104 mmol/L (98-107); Creatine Kinase 229 U/L (55-170); Glucose 98 mg/dL (74-99); Non-African American GFR(CKD) >90 (>60 ml/min/1.73 sqM); Sodium 138 mmol/L (137-145); Total Bilirubin 1.1 mg/dL (0.2-1.3); Total Protein 7.3 g/dL (6.3-8.2)
--- NOTE | 2023-03-16 13:34 | CT ---
EXAMINATION TYPE: CT angio head neck DATE OF EXAM: 03/16/2023 COMPARISON: None HISTORY: 47 year-old male neurologic deficit, acute, CVA suspected. TECHNIQUE: Contiguous axial scanning of the head and neck performed with IV Contrast, patient injecte d with 65cc mL of Isovue 370. Coronal/sagittal MIP reconstructions performed. 3-D reconstructions gen erated on a dedicated independent workstation. CT DLP: 576.5 mGycm Automated exposure control for dose reduction was used. FINDINGS: NECK: Paraseptal emphysema in the visualized upper lungs. Conventional branching anatomy. Dominant left vertebral artery. Both vertebral arteries are patent throughout the course. The right common and right internal carotid arteries are widely patent. The left common and left internal carotid arteries are widely patent. NASCET criteria was utilized. Patient is status post C5-C7. HEAD: The nondominant right vertebral artery becomes even more hypoplastic after the PICA takeoff. Otherwis e, the vertebral and basilar arteries are patent. Persistent origin right posterior cerebral ar reggie. Remainder of the posterior circulation is patent. The internal carotid arteries are patent. Azygous variant anterior cerebral artery. There appears to be diminutive anterior M2 branch of the left middle cerebral artery. No abnormal cut off is identified to clearly indicate acute occlusion. We note asymmetric enlargement and diminished enhancement of the left cavernous sinus for which MRI i s recommended. The superior ophthalmic veins are normal caliber. Otherwise, no significant stenosis or aneurysmal changes seen. IMPRESSION: HEAD: 1. 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 NO ABNORMAL CUTOFF TO CLEARLY INDICATE NANCY RIAL OCCLUSION. NO LARGE VESSEL OCCLUSION SEEN. 2. ASYMMETRICALLY LARGER LEFT CAVERNOUS SINUS WITH DIMINISHED ENHANCEMENT. THIS COULD ALSO BE ANATOMI C VARIATION. HOWEVER, GIVEN PATIENT'S SYMPTOMS, RECOMMEND MRI WITHOUT AND WITH CONTRAST TO FURTHER EV ALUATE. CALLED TO DR. STEPHENS IN THE ER AT 1:20 PM. NECK: 3. WIDELY PATENT VERTEBRAL AND CAROTID ARTERIES OF THE NECK. DOMINANT LEFT VERTEBRAL ARTERY. 4. PARASEPTAL EMPHYSEMA IN THE VISUALIZED UPPER LUNGS.
--- NOTE | 2023-03-16 14:39 | ED ---
General Adult HPI - General Chief complaint: Neuro Symptoms/Deficit Stated complaint: weakness Time Seen by Provider: 03/16/23 12:11 Source: patient Mode of arrival: ambulatory Limitations: no limitations - History of Present Illness Initial comments: 7-year-old male with past mental history of hypertension who presents emergency Department stating that he "just doesn't feel well". States for the past couple days he has been feeling generalized weakness, shortness of breath. This morning he woke up and was extremely vertiginous. He noted some tingling to his top lip and has blurred vision in his right eye. Patient extreme nauseated. He did not take any medications at home for her symptoms. Does report recent medication changes. Started a second medication for high blood pressure 2 weeks ago. He denies any lateralizing weakness in his extremities. No vomiting. Denies chest pain. No fevers. No other alleviating precipitating or modifying factors - Related Data Home Medications Medication Instructions Recorded Confirmed HYDROcodone/APAP 5-325MG [Etlan 1 tab PO BID PRN 05/11/22 03/16/23 5-325] FLUoxetine HCL [PROzac] 20 mg PO DAILY 03/16/23 03/16/23 Losartan-Hctz 50-12.5 mg [Hyzaar 1 tab PO HS 03/16/23 03/16/23 50-12.5] amLODIPine [Norvasc] 10 mg PO HS 03/16/23 03/16/23 modafiniL [Provigil] 200 mg PO DAILY 03/16/23 03/16/23 Allergies Allergy/AdvReac Type Severity Reaction Status Date / Time No Known Allergies Allergy Verified 03/16/23 13:02 Review of Systems ROS Statement: Those systems with pertinent positive or pertinent negative responses have been documented in the HPI. ROS Other: All systems not noted in ROS Statement are negative. Past Medical History Past Medical History: GERD/Reflux, Hypertension, Osteoarthritis (OA) Additional Past Medical History / Comment(s): pain "middle of back, L shoulder blade and down left arm into hand" History of Any Multi-Drug Resistant Organisms: None Reported Past Surgical History: Orthopedic Surgery Additional Past Surgical History / Comment(s): RT WRIST ganglion cyst removal. PAIN CLINIC INJECTIONS-. EGD. NECK SURGERY- Past Anesthesia/Blood Transfusion Reactions: Previous Problems w/ Anesthesia Additional Past Anesthesia/Blood Transfusion Reaction / Comment(s): WOKE UP DURING WRIST SX Past Psychological History: Depression, PTSD Smoking Status: Current every day smoker, Vaper Past Alcohol Use History: Rare Past Drug Use History: None Reported - Past Family History Mother Family Medical History: Cancer, Hypertension Additional Family Medical History / Comment(s): skin CA removed General Exam Limitations: no limitations Course Vital Signs 03/16/23 03/16/23 03/16/23 11:49 12:40 14:00 Temperature 98.1 F Pulse Rate 74 75 65 Respiratory 18 18 18 Rate Blood Pressure 125/88 117/87 119/90 O2 Sat by Pulse 95 96 96 Oximetry 03/16/23 15:00 Temperature Pulse Rate 76 Respiratory 18 Rate Blood Pressure 115/90 O2 Sat by Pulse 96 Oximetry EKG Findings - EKG Comments: EKG Findings:: EKG demonstrates sinus rhythm with a rate of 69. NH interval 141. QRS 105. QTC of 438. No acute ST segment elevations or depression Medical Decision Making - Medical Decision Making Was pt. sent in by a medical professional or institution (Dr. PA, DIRECTOR SPEECH LANGUAGE, urgent care, hospital, or senior care...) When possible be specific @ -[No] Did you speak to anyone other than the patient for history (EMS, parent, family, police, friend...)? What history was obtained from this source @ -[No] Did you review nursing and triage notes (agree or disagree)? Why? @ -[I reviewed and agree with nursing and triage notes] Were old charts reviewed (outside hosp., previous admission, EMS record, old EKG, old radiological studies, urgent care reports/EKG's, senior care records)? Report findings @ -[No old charts were reviewed] Differential Diagnosis (chest pain, altered mental status, abdominal pain women, abdominal pain men, vaginal bleeding, weakness, fever, dyspnea, syncope, headache, dizziness, GI bleed, back pain, seizure, CVA, palpatations, mental health, musculoskeletal)? @ -[not applicable] EKG interpreted by me (3pts min.). @ -[As above] X-rays interpreted by me (1pt min.). @ -[None done] CT interpreted by me (1pt min.). @ -[None done] U/S interpreted by me (1pt. min.). @ -[None done] What testing was considered but not performed or refused? (CT, X-rays, U/S, labs)? Why? @ -[None] What meds were considered but not given or refused? Why? @ -[None] Did you discuss the management of the patient with other professionals (professionals i.e. , PA, DIRECTOR SPEECH LANGUAGE, lab, RT, psych nurse, social work instructor, medical bill processor, teacher, child support case officer, disease case manager)? Give summary @ -[No] Was smoking cessation discussed for >3mins.? @ -[No] Was critical care preformed (if so, how long)? @ -[No] Were there social determinants of health that impacted care today? How? ( Homelessness, low income, unemployed, alcoholism, drug addiction, transportation, low edu. Level, literacy, decrease access to med. care, [facility], rehab)? @ -[No] Was there de-escalation of care discussed even if they declined (Discuss DNR or withdrawal of care, Hospice)? DNR status @ -[No] What co-morbidities impacted this encounter? (DM, HTN, Smoking, COPD, CAD, Cancer, CVA, ARF, Chemo, Hep., AIDS, mental health diagnosis, sleep apnea, morbid obesity)? @ -[None] Was patient admitted / discharged? Hospital course, mention meds given and route, prescriptions, significant lab abnormalities, going to OR and other pertinent info. @ -Upon arrival patient is placed in a trauma 2. Thorough history and physical exam was performed. NIH is assessed and is 0. IV is established and laboratory studies were conducted. Patient does ago for a CT of his brain as well as CT angiography. 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 He hasn't asymmetrically larger left cavernous sinus with diminished enhancement. They state that this also may be anatomic variant however cannot rule out sinus throm bus. They do recommend MRI and MRA. Because of this I did call and speak with Dr. Manriquez. MRIs are ordered. Patient will be admitted to [facility], [place]. Spoke with Dr. Tomlinosn who agreed to admit the patient Undiagnosed new problem with uncertain prognosis? @ -[No] Drug Therapy requiring intensive monitoring for toxicity (Heparin, Nitro, Insulin, Cardizem)? @ -[No] Were any procedures done? @ -[No] Diagnosis/symptom? @ -[default] Acute, or Chronic, or Acute on Chronic? @ -[default] Uncomplicated (without systemic symptoms) or Complicated (systemic symptoms)? @ -[default] Side effects of treatment? @ -[No] Exacerbation, Progression, or Severe Exacerbation? @ -[No] Poses a threat to life or bodily function? How? (Chest pain, USA, [place], pneumonia, PE, COPD, DKA, ARF, appy, cholecystitis, CVA, Diverticulitis, Homicidal, Suicidal, threat to staff... and all critical care pts) @ -[No] - Lab Data Result diagrams: 03/16/23 12:31 03/16/23 12:31 Lab Results 03/16/23 03/16/23 03/16/23 Range/Units 12: 12: 12:31 WBC 9.2 (3.8-10.6) k/uL RBC 5.37 (4.30-5.90) m/uL Hgb 15.6 (13.0-17.5) gm/dL Hct 44.9 (39.0-53.0) % MCV 83.6 (80.0-100.0) fL MCH 29.0 (25.0-35.0) pg MCHC 34.7 (31.0-37.0) g/dL RDW 13.1 (11.5-15.5) % Plt Count 248 (150-450) k/uL MPV 7.2 Neutrophils % 68 % Lymphocytes % 24 % Monocytes % 5 % Eosinophils % 1 % Basophils % 1 % Neutrophils # 6.3 (1.3-7.7) k/uL Lymphocytes # 2.2 (1.0-4.8) k/uL Monocytes # 0.4 (0-1.0) k/uL Eosinophils # 0.1 (0-0.7) k/uL Basophils # 0.0 (0-0.2) k/uL PT 10.8 (9.0-12.0) sec INR 1.0 (<1.2) APTT 24.3 (22.0-30.0) sec Sodium (137-145) mmol/L Potassium (3.5-5.1) mmol/L Chloride (98-107) mmol/L Carbon Dioxide (22-30) mmol/L Anion Gap mmol/L BUN (9-20) mg/dL Creatinine (0.66-1.25) mg/dL Est GFR (CKD-EPI)AfAm (>60 ml/min/1.73 sqM) Est GFR (CKD-EPI)NonAf (>60 ml/min/1.73 sqM) Glucose (74-99) mg/dL POC Glucose (mg/dL) 96 (70-110) mg/dL POC Glu Marketing Analytics Analyst ID Marcello Tirado Calcium (8.4-10.2) mg/dL Total Bilirubin (0.2-1.3) mg/dL AST (17-59) U/L ALT (4-49) U/L Alkaline Phosphatase (38-126) U/L Creatine Kinase (55-170) U/L Troponin I (0.000-0.034) ng/mL Total Protein (6.3-8.2) g/dL Albumin (3.5-5.0) g/dL 03/16/23 03/16/23 Range/Units 12:31 12:31 WBC (3.8-10.6) k/uL RBC (4.30-5.90) m/uL Hgb (13.0-17.5) gm/dL Hct (39.0-53.0) % MCV (80.0-100.0) fL MCH (25.0-35.0) pg MCHC (31.0-37.0) g/dL RDW (11.5-15.5) % Plt Count (150-450) k/uL MPV Neutrophils % % Lymphocytes % % Monocytes % % Eosinophils % % Basophils % % Neutrophils # (1.3-7.7) k/uL Lymphocytes # (1.0-4.8) k/uL Monocytes # (0-1.0) k/uL Eosinophils # (0-0.7) k/uL Basophils # (0-0.2) k/uL PT (9.0-12.0) sec INR (<1.2) APTT (22.0-30.0) sec Sodium 138 (137-145) mmol/L Potassium 4.0 (3.5-5.1) mmol/L Chloride 104 (98-107) mmol/L Carbon Dioxide 23 (22-30) mmol/L Anion Gap 11 mmol/L BUN 14 (9-20) mg/dL Creatinine 0.71 (0.66-1.25) mg/dL Est GFR (CKD-EPI)AfAm >90 (>60 ml/min/1.73 sqM) Est GFR (CKD-EPI)NonAf >90 (>60 ml/min/1.73 sqM) Glucose 98 (74-99) mg/dL POC Glucose (mg/dL) (70-110) mg/dL POC Glu Marketing Analytics Analyst ID Calcium 9.3 (8.4-10.2) mg/dL Total Bilirubin 1.1 (0.2-1.3) mg/dL AST 39 (17-59) U/L ALT 41 (4-49) U/L Alkaline Phosphatase 58 (38-126) U/L Creatine Kinase 229 H (55-170) U/L Troponin I <0.012 (0.000-0.034) ng/mL Total Protein 7.3 (6.3-8.2) g/dL Albumin 4.7 (3.5-5.0) g/dL Disposition Clinical Impression: Vertigo, Abnormal brain CT Disposition: ADMITTED IP TO THIS [facility] Condition: Stable Is patient prescribed a controlled substance at d/c from ED?: No Time of Disposition: 14:39 Decision to Admit Reason: Admit from EC Decision Date: 03/16/23 Decision Time: 14:39
[2023-03-16] MEDS ORDERED: NALOXONE 0.4 MG/ML 1 ML VIAL IV PRN (14:40)
--- NOTE | 2023-03-16 15:42 | P.HPIM ---
History of Present Illness H&P Date: 03/16/23 History of Presenting Illness: Patient is a very pleasant 47-year-old male with a past medical history of hypertension, GERD, depression, PTSD, and nicotine dependence. Patient p resented to the emergency department with a chief complaint of "not feeling well". Patient reports over the past few days he has just felt fatigued and generally overall weak. Patient reports this morning upon awakening initially felt like the room was spinning but states that sensation resolved and he is now just having dizziness/lightheadedness with nausea, mild blurring of vision in right eye, any numbness/tingling feeling in his lips. He denies any recent medication changes and denies any illnesses or known infections, fevers, chills, diaphoresis, headache, tinnitus, dysphagia, difficulty with speech, chest pain, palpitations, shortness of breath, or experiencing any numbness/tingling /weakness in his extremities. Patient underwent full evaluation in the emergency department. Labs completed and reviewed. CBC, coagulation profile, and CMP were unremarkable. Calcium was normal at 9.3. Blood glucose also normal at 98. Troponin less than 0.012. Creatinine kidneys was elevated slightly at 229. Vital signs upon arrival were unremarkable with blood pressure 125/88, heart rate 74, respiratory rate 18, and SpO2 of 95% on room air with temperature 98.1F. CT brain without contrast completed negative for acute intercranial process. 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 Cut off to clearly indicate arterial occlusion, asymmetrically larger left cavernous sinus with diminished enhancement, radiologist recommending MRI. EKG was completed showing normal sinus rhythm at 69 bpm with no noted T-wave or ST abnormalities upon personal review and interpretation. Discussed plan of care with ED physician in detail, patient admitted under our services with consultation to neurology. Review of systems: Pertinent positives and negatives as discussed in HPI, a complete review of systems was performed and all other systems are negative. Physical exam: Vital signs reviewed and stable. General: Nontoxic, no distress and appears stated age. Derm: Skin warm and dry, normal coloration for ethnicity. Head: Atraumatic, normocephalic and symmetric. Eyes: EOMs intact, no lid lag, and anicteric sclera. Mild nystagmus noted to left eye. Mouth: no lip lesions, mucus membranes moist Cardiovascular: regular rate and rhythm with normal S1S2, no murmur, positive posterior tibial pulses bilaterally, and cap refill < 2 seconds. Lungs: Respirations even, regular, and unlabored on room air. Lungs CTA bilaterally, no rhonchi, no rales, no wheezing, and no accessory muscle usage. Abdominal: soft, nontender to palpation, no guarding, no appreciable organomegaly Ext: ROM intact. No gross muscle atrophy, no edema, no contractures Neuro: Speech clear, face symmetrical and CN II-XII grossly intact with no noted focal neuro deficits Psych: Alert and oriented to person, place, time, and situation. Appropriate and pleasant affect. Assessment and Plan of Care: Dizziness/lightheadedness, likely vertigo. Abnormal CT findings Visual changes right eye Numbness/tingling of the lips. -Labs completed and reviewed. CBC, coagulation profile, and CMP were unremarkable. Calcium was normal at 9.3. Blood glucose also normal at 98. Troponin less than 0.012. Creatinine kinase was elevated slightly at 229. -Vital signs upon arrival were unremarkable with blood pressure 125/88, heart rate 74, respiratory rate 18, and SpO2 of 95% on room air with temperature 98.1F. -CT brain without contrast completed negative for acute intercranial process. 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 Cut off to clearly indicate arterial occlusion, asymmetrically larger left cavernous sinus with diminished enhancement, radiologist recommending MRI. -EKG was completed showing normal sinus rhythm at 69 bpm with no noted T-wave or ST abnormalities upon personal review and interpretation. -Discussed plan of care with ED physician in detail, patient admitted under our services with consultation to neurology. -Neuro checks to be completed. -Orthostatic vitals to be completed. -Discussed patient's symptoms and CT findings thoroughly with neurologist, MRI brain and MRA/MRV head and neck were ordered at this time. -Echocardiogram to be completed. -Continue daily aspirin and atorvastatin. Patient also started on meclizine 25 mg 4 times daily as needed for dizziness/lightheadedness. The patient is admitted with an anticipated less than 2 midnight stay for evaluation of dizziness/lightheadedness CODE STATUS: Full code DVT prophylaxis: heparin Discussed with: patient, patient's family at bedside, ED physician, and ne urologist Anticipated discharge date: 1-[address]: home Patient was seen independently by Nurse Practitioner. This document was prepared using [employer] dictation software. Please allow for errors in science intern while rare they do occur. Samuel Fallon NP rendered care for this patient independently, reviewed the findings and plan as documented in the note above. I did not physically speak with or examine the patient on this date. Past Medical History Past Medical History: GERD/Reflux, Hypertension, Osteoarthritis (OA) Additional Past Medical History / Comment(s): pain "middle of back, L shoulder blade and down left arm into hand" History of Any Multi-Drug Resistant Organisms: None Reported Past Surgical History: Orthopedic Surgery Additional Past Surgical History / Comment(s): RT WRIST ganglion cyst removal. PAIN CLINIC INJECTIONS-. EGD. NECK SURGERY- Past Anesthesia/Blood Transfusion Reactions: Previous Problems w/ Anesthesia Additional Past Anesthesia/Blood Transfusion Reaction / Comment(s): WOKE UP DURING WRIST SX Past Psychological History: Depression, PTSD Smoking Status: Current every day smoker, Vaper Past Alcohol Use History: Rare Past Drug Use History: None Reported - Past Family History Mother Family Medical History: Cancer, Hypertension Additional Family Medical History / Comment(s): skin CA removed Medications and Allergies Home Medications Medication Instructions Recorded Confirmed Type HYDROcodone/APAP 5-325MG [[place] 1 tab PO BID PRN 05/11/22 03/16/23 History 5-325] FLUoxetine HCL [PROzac] 20 mg PO DAILY 03/16/23 03/16/23 History Losartan-Hctz 50-12.5 mg [Hyzaar 1 tab PO HS 03/16/23 03/16/23 History 50-12.5] amLODIPine [Norvasc] 10 mg PO HS 03/16/23 03/16/23 History modafiniL [Provigil] 200 mg PO DAILY 03/16/23 03/16/23 History Meclizine [Antivert] 25 mg PO QID PRN #30 tab 03/17/23 Rx Allergies Allergy/AdvReac Type Severity Reaction Status Date / Time No Known Allergies Allergy Verified 03/16/23 13:02 Physical Exam Vitals: Vital Signs Temp Pulse Resp BP Pulse Ox 03/16/23 12:40 75 18 117/87 96 03/16/23 11:49 98.1 F 74 18 125/88 95 Intake and Output 03/16/23 03/16/23 03/16/23 06:59 14:59 22:59 Other: Weight 97.069 kg Results CBC & Chem 7: 03/17/23 08:02 03/17/23 08:02 Labs: Abnormal Lab Results - Last 24 Hours (Table) 03/16/23 Range/Units 12:31 Creatine Kinase 229 H (55-170) U/L
[2023-03-16] MEDS: SODIUM CHLORIDE 0.9% 1,000 ML IV SCH (16:20)
[2023-03-16] MEDS ORDERED: PROCHLORPERAZINE INJ 10 MG/2 ML VIAL IVP PRN (18:08)
[2023-03-16] MEDS ORDERED: HYDROcodone/APAP 5-325MG 1 EACH TAB PO PRN (18:22)
--- NOTE | 2023-03-16 18:52 | MR ---
EXAMINATION TYPE: MR MRA/MRV head wo con DATE OF EXAM: 03/16/2023 6:15 PM CLINICAL INDICATION:Male, 47 years old with history of vertigo; Left cavernous on CTA, vertigo COMPARISON: CT brain same day, MR brain same day CTA head neck same day TECHNIQUE: MRA brain: 3-D [id number] Axial with MIP and 3-D reconstruction performed on a separate workstati on. MRV of the brain: performed utilizing two-dimensional [id number] technique MIP and 3-D reconstruc tion. Performed on a separate workstation. IV Contrast: None Findings: Vertebral arteries: The vertebral arteries are patent. The left vertebral artery is dominant. Basilar artery: The basilar artery is intact. The basilar artery bifurcation is normal. Internal Carotid arteries: The cervical, petrous, cavernous and supraclinoid segments are normal. JEREMY: Patent with no evidence of aneurysm. ACOM: Present without evidence of aneurysm. MCA: Patent without evidence of aneurysm. HANDBAG STITCHER: Patent without evidence of aneurysm. origin of the right posterior cerebral artery. PCOM: origin of the right posterior cerebral artery. Hypoplastic left posterior communicating a rtery. The left cavernous sinus is better appreciated on postcontrast imaging in MRI same day of the brain. It is patent on the exam. No evidence for left cavernous sinus thrombosis. There is no evidence of venous occlusion or collateral circulation. There is no evidence of sinus th rombosis. IMPRESSION: 1. No evidence of venous sinus thrombosis. 2. No evidence of intracranial aneurysm or significant stenosis. 3. No evidence of venous sinus thrombosis. 4. The left cavernous sinus is better appreciated on postcontrast imaging in MRI same day of the bra in. It is patent on the exam. No evidence for left cavernous sinus thrombosis.
--- NOTE | 2023-03-16 18:53 | MR ---
EXAMINATION TYPE: MR brain wo/w con DATE OF EXAM: 03/16/2023 6:15 PM CLINICAL INDICATION:Male, 47 years old with history of left cavernous on CTA; Left cavernous on CTA, vertigo COMPARISON: CTA head and neck 03/16/2023, CT brain 03/16/2023 TECHNIQUE: Multi planar, multi sequence imaging was performed through the brain including: T1, T2, In version recovery, susceptibility weighted imaging and gradient echo imaging and Diffusion weighted im aging. The patient was then given intravenous contrast and multi planar, T1 fat-saturation images wer e obtained. IV Contrast: 9 cc Gadavist FINDINGS: Area of concern is felt to represent Meckel's cave and on MRI imaging both Meckel's caves are similar with slight asymmetry of the left being minimally larger. On the left measuring 6 x 14 mm on the rig ht measuring 5 x 13 mm. There demonstrates predominantly T2 signal within the Meckel's cave. The left Meckel's cave sits slightly more superior given the prominence on CT. Postcontrast imaging demonstra china equal enhancement of the cavernous sinuses. The superior ophthalmic veins are patent bilaterally. The lynn-white junctions, ventricular system, basal cisterns appear unremarkable. Diffusion-weighted imaging shows no evidence of restricted diffusion to suggest acute/subacute infarct. Intracranial art erial flow voids are maintained. Midline structures show no abnormality. Minimal scattered foci of hi gh T2 signal intensity are seen within the periventricular white matter. The susceptibility weighted images do not reveal any evidence for micro-hemorrhage. After administration of gadolinium, no abnorm al enhancement is seen. The bone marrow signal is within normal limits. Paranasal sinuses and mastoid air cells: No significant paranasal sinus disease. Visualized orbits: Orbital contents are intact. IMPRESSION: 1. The cavernous sinuses appear minimally asymmetrically larger on the left and is more superior whi ch correlates with finding on CT. No evidence for cavernous sinus thrombosis. Our abnormal enhancemen t. 2. No evidence of intracranial mass, acute/subacute infarct, or abnormal enhancement. 3. Minimal nonspecific white matter changes, likely related to small vessel ischemic disease
[2023-03-16] MEDS: ASPIRIN 325 MG TAB PO SCH (18:58)
[2023-03-16] MEDS ORDERED: MELATONIN 5 MG TABLET PO PRN (19:58)
[2023-03-16] MEDS ORDERED: LOSARTAN-HCTZ 50-12.5 MG 1 EACH TAB PO SCH (21:00)
[2023-03-16] MEDS ORDERED: ATORVASTATIN 40 MG TAB PO SCH (21:00)
[2023-03-16] MEDS ORDERED: amLODIPine 10 MG TAB PO SCH (21:00)
[2023-03-16] MEDS: MECLIZINE 25 MG TAB PO SCH (21:25)
[2023-03-16] MEDS: NICOTINE 21MG/24HR PATCH TRANSDERM SCH (21:25)
[2023-03-16] MEDS: HEPARIN SODIUM,PORCINE/PF 5,000 UNIT/0.5 ML SYRINGE SQ SCH (23:19)
[2023-03-17 02:59] LABS: Chol/HDL Ratio 3.98 Ratio; LDL Cholesterol,Calculated 119.7 mg/dL (0.0-131.0)
[2023-03-17] MEDS: SODIUM CHLORIDE 0.9% 1,000 ML IV SCH (04:19)
[2023-03-17 07:24] VITALS: RESP 16
[2023-03-17 08:14] LABS: Basophils % (A) 1 %; Eosinophils # (A) 0.1 k/uL (0-0.7); Eosinophils % (A) 2 %; HCT 42.5 % (39.0-53.0); HGB 14.6 gm/dL (13.0-17.5); Lymphocytes % (A) 28 %; MCHC 34.2 g/dL (31.0-37.0); MCV 84.8 fL (80.0-100.0); Mean Platelet Volume 7.3; Monocytes # (A) 0.4 k/uL (0-1.0); Monocytes % (A) 6 %; Neutrophils # (A) 4.4 k/uL (1.3-7.7); Neutrophils % (A) 61 %; Platelet Count 223 k/uL (150-450); RBC 5.02 m/uL (4.30-5.90); RDW 13.1 % (11.5-15.5); WBC 7.1 k/uL (3.8-10.6)
[2023-03-17 08:23] LABS: African American GFR (CKD) >90 (>60 ml/min/1.73 sqM); Anion Gap 7 mmol/L; Blood Urea Nitrogen 13 mg/dL (9-20); Calcium 8.6 mg/dL (8.4-10.2); Carbon Dioxide 26 mmol/L (22-30); Chloride 107 mmol/L (98-107); Glucose 117 mg/dL (74-99); Non-African American GFR(CKD) >90 (>60 ml/min/1.73 sqM); Potassium 3.8 mmol/L (3.5-5.1); Sodium 140 mmol/L (137-145)
[2023-03-17] MEDS ORDERED: FLUoxetine HCL 20 MG CAP PO SCH (09:00)
[2023-03-17] MEDS: ASPIRIN 325 MG TAB PO SCH (09:37)
[2023-03-17] MEDS: HEPARIN SODIUM,PORCINE/PF 5,000 UNIT/0.5 ML SYRINGE SQ SCH (09:37)
[2023-03-17] MEDS: NICOTINE 21MG/24HR PATCH TRANSDERM SCH (09:37)
[2023-03-17] MEDS: MECLIZINE 25 MG TAB PO SCH ×2 (09:37→14:49)
--- NOTE | 2023-03-17 11:12 | P.CNNES ---
History of Present Illness Consult date: 03/17/23 Requesting physician: Jennyfer Flower Reason for Consult: acute vertigo, abnormal CT History of Present Illness: This is a 47-year-old gentleman with history of hypertension, dates who presented emergency department because of dizziness. The patient stated that the dizziness began about 3 days ago and was sudden onset and he feels the room is spinning. He has episodes of nausea and vomiting. Denies any ringing in the ears or hearing loss. The dizziness is throughout. He also feels generalized weakness and fatigue. Denies any focal weakness, numbness, difficulty getting his words out or swallowing. Denies any history of stroke or seizures. Denies any history of brain mass. He denies any fevers recently or any sick contacts. He currently feels the dizziness is improving. Denies any recent falls. Some of the workup during this hospital visit consisted of: CBC with differential is unremarkable Chemistry panel is Nguyen level slightly elevated and is 229 normal supposed to be 55-170 and otherwise the rest of Chemstrip panel is unremarkable Lipid panels triglycerides 83, cholesterol is 182, LDLs 119, HDL 45. EKG of the head is reported as no acute intracranial abnormality seen. I personally reviewed the CT and I agree report. 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 No abnormal cutoff to clearly indicate arterial occlusion. No large vessel occlusion seen. CT angiography of the neck was reported as widely patent cubital and carotid arteries of the neck. Dominant left vertebral artery. Paraseptal emphysema in the visualized upper lungs. MRI MRV of the head is reported as the cavernous sinus. Minimally asymmetrically larger on the left is more superior which correlate with the finding on the CT. No evidence of cavernous sinus thrombosis. Or abnormal enhancement. MRI of the brain with and without is reported as no evidence of intracranial mass, acute/subacute infarct or abnormal enhancement. Minimal nonspecific white matter changes likely related to small vessel ischemic disease. Past Medical History Past Medical History: GERD/Reflux, Hypertension, Osteoarthritis (OA) Additional Past Medical History / Comment(s): pain "middle of back, L shoulder blade and down left arm into hand" History of Any Multi-Drug Resistant Organisms: None Reported Past Surgical History: Orthopedic Surgery Additional Past Surgical History / Comment(s): RT WRIST ganglion cyst removal. PAIN CLINIC INJECTIONS-. EGD. NECK SURGERY- Past Anesthesia/Blood Transfusion Reactions: Previous Problems w/ Anesthesia Additional Past Anesthesia/Blood Transfusion Reaction / Comment(s): WOKE UP DURING WRIST SX Past Psychological History: Depression, PTSD Smoking Status: Current every day smoker, Vaper Past Alcohol Use History: Rare Past Drug Use History: None Reported - Past Family History Mother Family Medical History: Cancer, Hypertension Additional Family Medical History / Comment(s): skin CA removed Medications and Allergies Home Medications Medication Instructions Recorded Confirmed Type HYDROcodone/APAP 5-325MG [[place] 1 tab PO BID PRN 05/11/22 03/16/23 History 5-325] FLUoxetine HCL [PROzac] 20 mg PO DAILY 03/16/23 03/16/23 History Losartan-Hctz 50-12.5 mg [Hyzaar 1 tab PO HS 03/16/23 03/16/23 History 50-12.5] amLODIPine [Norvasc] 10 mg PO HS 03/16/23 03/16/23 History modafiniL [Provigil] 200 mg PO DAILY 03/16/23 03/16/23 History Allergies Allergy/AdvReac Type Severity Reaction Status Date / Time No Known Allergies Allergy Verified 03/16/23 13:02 Physical Examination - Vital Signs Vital Signs: Vital Signs Temp Pulse Pulse Pulse Pulse Resp BP 03/17/23 06:58 97.9 F 80 16 03/17/23 02:34 98.2 F 82 17 03/16/23 19:44 98.0 F 65 74 74 17 03/16/23 18:39 98.2 F 73 18 03/16/23 16:49 98.4 F 80 20 123/82 03/16/23 15:00 76 18 115/90 03/16/23 14:00 65 18 119/90 03/16/23 12:40 75 18 117/87 03/16/23 11:49 98.1 F 74 18 125/88 BP BP BP Pulse Ox 03/17/23 06:58 110/75 94 L 03/17/23 02:34 109/5 94 L 03/16/23 19:44 108/73 104/68 98/60 94 L 03/16/23 18:39 104/74 95 03/16/23 16:49 96 03/16/23 15:00 96 03/16/23 14:00 96 03/16/23 12:40 96 03/16/23 11:49 95 Intake and Output 03/16/23 03/17/23 03/17/23 22:59 06:59 14:59 Other: Voiding Method Toilet # Voids 2 2 Weight 97.069 kg GENERAL: The patient is lying in bed and is not in acute distress. CHEST: The heart rate is regular rate rhythm. No murmurs to auscultation. LUNG: Clear to auscultation bilaterally no wheezing noted throughout. Not labored breathing. ABDOMEN/GI: Bowel sounds present in all 4 quadrants. No tenderness to palpation throughout. NEUROLOGICAL: Higher mental function: The patient is awake, alert, oriented to self, place and time. Patient is following commands. No aphasia and no neglect. Cranial nerves: The pupils are round, equal and reactive to light and a ccommodation. Visual melo are full to confrontation throughout. Extraocular movement is intact no nystagmus is noted. Facial sensation is normal to touch throughout. The facial strength is normal throughout. Hearing is normal bilaterally to hand rub. Tongue is midline and moved [id number] without any difficulty. No dysarthria is noted. Shoulder shrug is normal bilaterally. Motor: Gait is normal. The strength is 5 over 5 throughout. Normal tone and bulk. Cerebellum: Normal finger to nose bilaterally. Sensation: Sensation is normal to touch throughout. Reflexes (right/left): 2+ throughout. Plantars are downgoing bilaterally. Results - Laboratory Findings CBC and BMP: 03/17/23 08:02 03/17/23 08:02 Abnormal Lab Findings: Abnormal Labs 03/16/23 03/17/23 12:31 08:02 Glucose 117 H Creatine Kinase 229 H Assessment and Plan Assessment: This is a 47-year-old gentleman who presented emergency department because of dizziness for the past couple days with generalized weakness, nausea vomiting and today had an episode of diarrhea. Acute Vertigo: Appears peripheral. MRI Brain w/ and w/o is negative for stroke or mass--feels improving. No focal deficits on examination Asymmetry of cavernous sinus size left more than the right on the MR without any evidence of mass that is reported: Possible anatomical variation Hypertension Vapes Plan: During this hospital visit the patient was started on aspirin 325mg daily. Lipitor was discontinued since this is not a stroke or TIA. Regarding the asymmetry of the cavernous sinus size I recommend the patient to follow-up with a neurosurgeon as an outpatient for further assessment and recommend following-up with Dr. Brenden Martin (over at [facility]). Patient is on meclizine 25 mg 1 tablet 4 times a day 2-D echo was ordered and is pending Defer the rest of the medical management to primary team He was notified since he continues to have some dizziness and with nausea vomiting I recommended for him to stay an additional day but he is reluctant in and wants to be discharged home. The plan was discussed with the patient and his was at bedside as well as the primary team Thank you for the consultation Dr. Joshua will start neurology coverage tomorrow A.M. Time with Patient: Greater than 30
--- NOTE | 2023-03-17 16:02 | P.DS ---
Providers Date of admission: 03/16/23 14:43 Expected date of discharge: 03/17/23 Attending physician: Eric Tomlinson MD Consults: 03/16/23 14:40 Consult Physician Urgent Consulting Provider: Tho Manriquez Consult Reason/Comments: acute vertigo, abn brain ct Do you want consulting provider notified?: Yes Primary care physician: Emeterio Daniels [place] Hospital Course: Discharge Diagnosis: Dizziness/lightheadedness, likely vertigo. Patient discharge prior to results of echocardiogram per his request. Patient instructed he will need to follow up outpatient with his primary care provider to discuss these results and based upon these findings may require follow-up with mediation commissioner for further evaluation and possible loop recorder placement. Abnormal CT findings showing asymmetry of cavernous sinus. Neurology recommending patient discharge and follow up outpatient with Dr. Brenden Martin at [facility] regarding the asymmetry of the cavernous sinus. Visual changes right eye, discussed with patient recommendations for outpatient follow-up with plastic design applier if visual changes returned. Numbness/tingling of the lips. Patient reports full resolution of this complaint. Hospital Course: Patient is a very pleasant 47-year-old male with a past medical history of hypertension, GERD, depression, PTSD, and nicotine dependence. Patient presented to the emergency department with a chief complaint of "not feeling well". Patient reports over the past few days he has just felt fatigued and generally overall weak. Patient reports this morning upon awakening initially felt like the room was spinning but states that sensation resolved and he is now just having dizziness/lightheadedness with nausea, mild blurring of vision in right eye, any numbness/tingling feeling in his lips. He denies any recent medication changes and denies any illnesses or known infections, fevers, chills, diaphoresis, headache, tinnitus, dysphagia, difficulty with speech, chest pain, palpitations, shortness of breath, or experiencing any numbness/tingling/weakness in his extremities. Patient underwent full evaluation in the emergency department. Labs completed and reviewed. CBC, coagulation profile, and CMP were unremarkable. Calcium was normal at 9.3. Blood glucose also normal at 98. Troponin less than 0.012. Creatinine kidneys was elevated slightly at 229. Vital signs upon arrival were unremarkable with blood pressure 125/88, heart rate 74, respiratory rate 18, and SpO2 of 95% on room air with temperature 98.1F. CT brain without contrast completed negative for acute intercranial process. 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 Cut off to clearly indicate arterial occlusion, asymmetrically larger left cavernous sinus with diminished enhancement, radiologist recommending MRI. EKG was completed showing normal sinus rhythm at 69 bpm with no noted T-wave or ST abnormalities upon personal review and interpretation. Discussed plan of care with ED physician in detail, patient admitted under our services with consultation to neurology. Patient underwent MRI of brain in radiology report reviewed revealing cavernous sinuses appear minimally asymmetrically larger on the left and is more superior which correlates with CT findings, no evidence of cavernous sinus thrombosis or abnormal enhancement, no evidence of intracranial mass or acute/subacute infarct, and minimal nonspecific white matter changes. MRA head also completed in radiology report stating no evidence of venous sinus thrombosis and no evidence of intracranial aneurysm or significant stenosis. Patient monitored overnight and reports full resolution of numbness/tingling in his lips but does report continued episodes of occasional nausea as well as occasional lightheadedness/dizziness but reports has improved. He was evaluated by neurologist and was encouraged to stay an additional night, however patient adamant that he wanted to be discharged home. Neurology recommending patient discharge and follow up outpatient with Dr. Brenedn Martin at [facility] regarding the asymmetry of the cavernous sinus. Echocardiogram was also completed and while awaiting results, patient requesting discharge. Called mediation commissioner and was informed that echocardiogram would not be read until later this evening. Patient discharged per his request without these results. Patient instructed he will need to follow up outpatient with his PCP to discuss these results and based upon these findings may require follow-up with mediation commissioner for further evaluation and possible loop recorder placement. Medically, patient stable at this time and being discharged at this time. Patient to follow up outpatient with PCP, neurosurgery, ophthalmology, and based upon echocardiogram findings and/or persistent episodes of dizziness/lightheadedness recommended patient follow-up with mediation commissioner. Physical exam: Vital signs reviewed and stable. General: Nontoxic, no distress and appears stated age. Derm: Skin warm and dry, normal coloration for ethnicity. Head: Atraumatic, normocephalic and symmetric. Eyes: EOMs intact, no lid lag, and anicteric sclera. Mild nystagmus noted to left eye. Mouth: no lip lesions, mucus membranes moist Cardiovascular: regular rate and rhythm with normal S1S2, no murmur, positive posterior tibial pulses bilaterally, and cap refill < 2 seconds. Lungs: Respirations even, regular, and unlabored on room air. Lungs CTA bilaterally, no rhonchi, no rales, no wheezing, and no accessory muscle usage. Abdominal: soft, nontender to palpation, no guarding, no appreciable organomegaly Ext: ROM intact. No gross muscle atrophy, no edema, no contractures Neuro: Speech clear, face symmetrical and CN II-XII grossly intact with no noted focal neuro deficits Psych: Alert and oriented to person, place, time, and situation. Appropriate and pleasant affect. A total of 32 minutes of time were spent preparing this complex discharge summary. Pt was discharged on 03/17/23 at 4:01 PM. Patient was seen independently by Nurse Practitioner. This document was prepared using [employer] dictation software. Please allow for errors in kiss setter hand while rare they do occur. Patient Condition at Discharge: Stable Plan - Discharge Summary Discharge Rx Participant: No New Discharge Prescriptions: New Meclizine [Antivert] 25 mg PO QID PRN #30 tab PRN Reason: Vertigo Continue FLUoxetine HCL [PROzac] 20 mg PO DAILY modafiniL [Provigil] 200 mg PO DAILY Losartan-Hctz 50-12.5 mg [Hyzaar 50-12.5] 1 tab PO HS HYDROcodone/APAP 5-325MG [[place] 5-325] 1 tab PO BID PRN PRN Reason: Pain amLODIPine [Norvasc] 10 mg PO HS Discharge Medication List HYDROcodone/APAP 5-325MG [[place] 5-325] 1 tab PO BID PRN 05/11/22 [History] FLUoxetine HCL [PROzac] 20 mg PO DAILY 03/16/23 [History] Losartan-Hctz 50-12.5 mg [Hyzaar 50-12.5] 1 tab PO HS 03/16/23 [History] amLODIPine [Norvasc] 10 mg PO HS 03/16/23 [History] modafiniL [Provigil] 200 mg PO DAILY 03/16/23 [History] Meclizine [Antivert] 25 mg PO QID PRN #30 tab 03/17/23 [Rx] Follow up Appointment(s)/Referral(s): Emeterio Servin MD [Primary Care Provider] - 1-2 days Patient Instructions/Handouts: Vertigo (DC) Activity/Diet/Wound Care/Special Instructions: Activity: As tolerated. Take breaks as needed. Diet: Heart healthy and carb consistent diet. Avoid salts, or foods with hidden salts such as canned or boxed foods and frozen dinners. Extra salt makes your heart work harder and traps the fluid in your body for longer. Special Instructions: Take all of your medications as directed and remember to keep all of your doctor's appointments and follow-up as needed. As discussed with you by your neurologist, it is recommended that he follow up outpatient with Neurosurgeon, Dr. Brenden Martin at [facility]. . Please call Sunday morning to schedule appointment. You are being discharged home per your request prior to results of your echocardiogram, you will need to follow up with these results with your primary care doctor Dr. Servin as they are not available at time of your discharge. Also recommend undergoing outpatient evaluation with a mediation commissioner and possible placement of a loop recorder if your dizziness/lightheadedness does not resolve. Please schedule outpatient appointment with your primary doctor, Dr. Servin in 2-3 days and return to the emergency department immediately if you again experience any focal weakness and/or numbness. Also as discussed, recommend outpatient follow-up with plastic design applier. Thank you for allowing us to participate in your care, it was truly a pleasure having you for our patient!!! Discharge Disposition: HOME SELF-CARE Care Plan Goals (MU): FOLLOW-UP WITH DR. BRENDEN MARTIN (NEUROSURGERY FOR ASYMETRICAL CAVERNOUS SINUS SIZE LEFT > RIGHT. [address] [place], [place] [phone]
[2023-03-17 16:49] VITALS: BP 114/74; PULSE 78; TEMP 98.1
--- NOTE | 2023-03-17 17:31 | CA ---
Transthoracic Echo Report Name: Estuardo Kingston Age: 47 Gender: M : 1975 Exam Date: 03/17/2023 10:03 Exam Location: [place] Echo Ht (in): 69 Wt (lb): 214 Ordering Physician: Tho Manriquez MD Attending/Referring Phys: Denture Packer Minnie Osuna RDCS Procedure CPT: Indications: stroke Cardiac Hx: Technical Quality: Fair Contrast 1: Total Dose (mL): Contrast 2: Total Dose (mL): MEASUREMENTS (Male / Female) Normal Values 2D ECHO LV Diastolic Diameter PLAX 4.0 cm 4.2 - 5.9 / 3.9 - 5.3 cm LV Systolic Diameter PLAX 2.2 cm IVS Diastolic Thickness 1.4 cm 0.6 - 1.0 / 0.6 - 0.9 cm LVPW Diastolic Thickness 1.3 cm 0.6 - 1.0 / 0.6 - 0.9 cm LV Relative Wall Thickness 0.7 RV Internal Dim ED PLAX 4.3 cm LA Volume 55.1 cm??? 18 - 58 / 22 - 52 cm??? M-MODE Aortic Root Diameter MM 2.9 cm LA Systolic Diameter MM 4.1 cm LA Ao Ratio MM 1.4 AV Cusp Separation MM 2.0 cm DOPPLER AV Peak Velocity 124.4 cm/s AV Peak Gradient 6.2 mmHg AV Mean Velocity 83.8 cm/s AV Mean Gradient 3.2 mmHg AV Velocity Time Integral 23.0 cm LVOT Peak Velocity 104.5 cm/s LVOT Peak Gradient 4.4 mmHg LVOT Velocity Time Integral 23.5 cm MV Area PHT 3.0 cm??? Mitral E Point Velocity 76.4 cm/s Mitral A Point Velocity 80.9 cm/s Mitral E to A Ratio 0.9 MV Deceleration Time 252.1 ms MV E' Velocity 9.8 cm/s Mitral E to MV E' Ratio 7.8 TR Peak Velocity 271.4 cm/s TR Peak Gradient 29.5 mmHg Right Ventricular Systolic Press 34.2 mmHg FINDINGS Left Ventricle Moderately increased septal wall thickness. Left ventricular cavity size normal Normal left ventricular systolic function with no obvious regional wall motion abnormalities. Left ventricular ejection fraction is estimated at 55-60 %. Right Ventricle Severe right ventricular dilatation. Mild pulmonary hypertension. Right Atrium Mild right atrial dilatation. Left Atrium Normal left atrial size. Mitral Valve Structurally normal mitral valve. No mitral stenosis, regurgitation or prolapse. Aortic Valve Trileaflet aortic valve. No aortic valve stenosis or regurgitation. Tricuspid Valve Structurally normal tricuspid valve. Mild tricuspid regurgitation. Pulmonic Valve Structurally normal pulmonic valve. Trace pulmonic regurgitation. Pericardium No pericardial effusion. Aorta Normal size aortic root and proximal ascending aorta. CONCLUSIONS Dilated RV and RA Preserved systolic function Previewed by: Dr. Milton Gomez MD (Electronically Signed) Final Date: 17 Mar 2023 17:30
== END 2023-03-17 17:02 | disposition home or self-care (01) ==
LOC: EC 11:46 → 6NMEDSUR 14:43
PROVIDERS: ADMIT Student in an Organized Health Care Education/Training Program; ATTEND Student in an Organized Health Care Education/Training Program
DX: R42 Dizziness and giddiness (principal); R20.0 Anesthesia of skin; R20.2 Paresthesia of skin; R94.8 Abnormal results of function studies of other organs and systems; J34.89 Other specified disorders of nose and nasal sinuses; I10 Essential (primary) hypertension; K21.9 Gastro-esophageal reflux disease without esophagitis; F32.A Depression, unspecified; F43.10 Post-traumatic stress disorder, unspecified; R11.2 Nausea with vomiting, unspecified; M19.90 Unspecified osteoarthritis, unspecified site; Z98.890 Other specified postprocedural states; F17.290 Nicotine dependence, other tobacco product, uncomplicated; Z82.49 Family history of ischemic heart disease and other diseases of the circulatory system; Z80.8 Family history of malignant neoplasm of other organs or systems; Z79.899 Other long term (current) drug therapy
CPT/HCPCS: 96372; 96375; 96361; 96374; 99285; 36415; 93306; 80061; 80053; 80048; 82550; 84484; 85025 ×2; 85610; 85730; 71046; 70496; 70450; 70498; 70553; 70544; G0378 ×2; S4990 ×2; J0780; J3360; J2405; Q9967; J1644; A9585; 93005

== ENCOUNTER → 2023-11-16 | Outpatient (CLI) | payer OTHER ==
--- NOTE | 2023-11-18 09:43 | CT ---
EXAMINATION TYPE: CT cervical spine wo con DATE OF EXAM: 11/16/2023 COMPARISON: None HISTORY: Chronic neck pain CT DLP: 679.3 mGycm CONTRAST: None CT of the cervical spine is performed in the axial plane at 2 mm thick sections. Reconstructed image s in the coronal, and sagittal plane are reviewed on the computer. No acute fractures are evident. Vertebral body alignment is normal. There is an anterior cervical fusion C5-C7. Disc space narrowing associated with fusion levels. Remaining disc heights are preserved. Vertebral body heights are preserved. No spinal canal stenosis is evident No neural foraminal stenosis is evident. IMPRESSION: 1. Prior anterior cervical fusion C5-C7. No acute changes
== END | disposition home or self-care (01) ==
LOC: RADCTMAIN 18:19
PROVIDERS: ATTEND Orthopaedic Surgery Orthopaedic Surgery of the Spine
DX: M50.30 Other cervical disc degeneration, unspecified cervical region (principal); Z98.1 Arthrodesis status
CPT/HCPCS: 72125

== ENCOUNTER 2024-08-01 15:38 | Emergency (ER) | payer OTHER ==
[2024-08-01 15:50] VITALS: RESP 20; TEMP 97.9
--- NOTE | 2024-08-01 16:18 | ED ---
Neck Injury/Pain HPI - General Chief Complaint: Neck Pain/Injury Stated Complaint: Right side neck and shoulder pain Time Seen by Provider: 08/01/24 15:58 Source: RN notes reviewed Mode of arrival: ambulatory Limitations: no limitations - History of Present Illness Initial Comments: 49-year-old male with history of hypertension and degenerative disc disease presenting to the ER with chief complaint of right shoulder pain x 3 days with headache. States 3 days ago he gradually began to feel an achy pain in his right shoulder with radiation to the neck. States he does have a history of a cervical spinal fusion and gets pain in the neck and shoulders from time to time, however reports this pain is different and worse than previous. He also reports he is having a headache with pressure behind his left eye. He is also been having intermittent blurriness in his vision. States he feels as though "he is hanging upside down" when referring to the pressure in his head. Denies chest pain, shortness of breath. States pain is not worse with movement. Denies injury or trauma. States he takes medication for blood pressure, has not been taking it consistently due to insurance issues. Denies blood thinners. - Related Data Home Medications Medication Instructions Recorded Confirmed HYDROcodone/APAP 5-325MG [[place] 1 tab PO BID PRN 05/11/22 03/16/23 5-325] FLUoxetine HCL [PROzac] 20 mg PO DAILY 03/16/23 03/16/23 Losartan-Hctz 50-12.5 mg [Hyzaar 1 tab PO HS 03/16/23 03/16/23 50-12.5] amLODIPine [Norvasc] 10 mg PO HS 03/16/23 03/16/23 modafiniL [Provigil] 200 mg PO DAILY 03/16/23 03/16/23 Previous Rx's Medication Instructions Recorded Meclizine [Antivert] 25 mg PO QID PRN #30 tab 03/17/23 Cyclobenzaprine [Flexeril] 10 mg PO TID PRN #15 tab 08/01/24 Allergies Allergy/AdvReac Type Severity Reaction Status Date / Time No Known Allergies Allergy Verified 03/16/23 13:02 Review of Systems ROS Statement: Those systems with pertinent positive or pertinent negative responses have been documented in the HPI. ROS Other: All systems not noted in ROS Statement are negative. Past Medical History Past Medical History: GERD/Reflux, Hypertension, Osteoarthritis (OA) Additional Past Medical History / Comment(s): pain "middle of back, L shoulder blade and down left arm into hand" History of Any Multi-Drug Resistant Organisms: None Reported Past Surgical History: Orthopedic Surgery Additional Past Surgical History / Comment(s): RT WRIST ganglion cyst removal. PAIN CLINIC INJECTIONS-. EGD. NECK SURGERY- Past Anesthesia/Blood Transfusion Reactions: Previous Problems w/ Anesthesia Additional Past Anesthesia/Blood Transfusion Reaction / Comment(s): WOKE UP DURING WRIST SX Past Psychological History: Depression, PTSD Smoking Status: Current every day smoker, Vaper Past Alcohol Use History: Rare Past Drug Use History: None Reported - Past Family History Mother Family Medical History: Cancer, Hypertension Additional Family Medical History / Comment(s): skin CA removed General Exam Limitations: no limitations General appearance: alert, in no apparent distress Head exam: Present: atraumatic, normocephalic, normal inspection Eye exam: Present: normal appearance, PERRL, EOMI. Absent: scleral icterus, conjunctival injection, periorbital swelling ENT exam: Present: normal exam, normal oropharynx, mucous membranes moist Neck exam: Present: normal inspection. Absent: tenderness, meningismus, lymphadenopathy Respiratory exam: Present: normal lung sounds bilaterally. Absent: respiratory distress, wheezes, rales, rhonchi, stridor Cardiovascular Exam: Present: regular rate, normal rhythm, normal heart sounds. Absent: systolic murmur, diastolic murmur, rubs, gallop, clicks GI/Abdominal exam: Present: soft, normal bowel sounds. Absent: distended, tenderness, guarding, rebound, rigid Extremities exam: Present: normal inspection, full ROM, normal capillary refill. Absent: tenderness, pedal edema, joint swelling, calf tenderness Right Shoulder Exam: Present: normal inspection, full ROM. Absent: tenderness (No tenderness to palpation, no pain with movement. Negative Neer's, negative empty can test), swelling, deformity, erythema Upper Arm exam: Present: normal inspection, full ROM. Absent: tenderness, swelling Elbow exam: Present: normal inspection, full ROM. Absent: tenderness, swelling Forearm Wrist exam: Present: normal inspection, full ROM. Absent: tenderness, swelling Hand Wrist exam: Present: normal inspection, full ROM. Absent: tenderness, swelling Vascular: Present: normal capillary refill, radial pulse. Absent: vascular compromise Course Vital Signs 08/01/24 15:46 Temperature 97.9 F Pulse Rate 90 Respiratory 20 Rate Blood Pressure 142/93 O2 Sat by Pulse 98 Oximetry Medical Decision Making - Medical Decision Making Was pt. sent in by a medical professional or institution (, [facility], [facility], urgent care, hospital, or [facility]...) When possible be specific @ -No Did you speak to anyone other than the patient for history (EMS, parent, family, police, friend...)? What history was obtained from this source @ -No Did you review nursing and triage notes (agree or disagree)? Why? @ -I reviewed and agree with nursing and triage notes Were old charts reviewed (outside hosp., previous admission, EMS record, old EKG, old radiological studies, urgent care reports/EKG's, [facility] records)? Report findings @ -No old charts were reviewed Differential Diagnosis (chest pain, altered mental status, abdominal pain women, abdominal pain men, vaginal bleeding, weakness, fever, dyspnea, syncope, headache, dizziness, GI bleed, back pain, seizure, CVA, palpatations, mental health, musculoskeletal)? @ -Differential Musculoskeletal ACS, muscular strain, contusion, ligament sprain, fracture, arthritis, septic arthritis, bursitis, cellulitis, muscle spasm, nerve compression, DVT, arterial occlusion, herpes zoster, electrolyte abnormality, tumor.... This is not meant to be in all inclusive list Differential Headache: Migraine, tension, cluster, carbon monoxide, central venous thrombosis, pension karma temporal arteritis, acute closure glaucoma, intercranial hemorrhage, mastoiditis, sinusitis, head injury, this is not meant to be an all-inclusive list. EKG interpreted by me (3pts min.). @ -As above X-rays interpreted by me (1pt min.). @ -None done CT interpreted by me (1pt min.). @ -CT head brain without contrast, CTA brain and neck revealed no acute process U/S interpreted by me (1pt. min.). @ -None done What testing was considered but not performed or refused? (CT, X-rays, U/S, labs)? Why? @ -None What meds were considered but not given or refused? Why? @ -None Did you discuss the management of the patient with other professionals (professionals i.e. , [facility], [facility], lab, RT, psych nurse, social security assessor, engineer first assistant, teacher, parachute/combatant diver officer, case coordinator)? Give summary @ -No Was smoking cessation discussed for >3mins.? @ -No Was critical care preformed (if so, how long)? @ -No Were there social determinants of health that impacted care today? How? (Homelessness, low income, unemployed, alcoholism, drug addiction, transportation, low edu. Level, literacy, decrease access to med. care, longterm, rehab)? @ -No Was there de-escalation of care discussed even if they declined (Discuss DNR or withdrawal of care, Hospice)? DNR status @ -No What co-morbidities impacted this encounter? (DM, HTN, Smoking, COPD, CAD, Cancer, CVA, ARF, Chemo, Hep., AIDS, mental health diagnosis, sleep apnea, morbid obesity)? @ -None Was patient admitted / discharged? Hospital course, mention meds given and route, prescriptions, significant lab abnormalities, going to OR and other pertinent info. @ -Discharged. This is a 49-year-old male presenting with right shoulder pain x 3 days with headache. No trauma or injury. He does have a history of degenerative disc disease of the neck. Patient was provided with muscle relaxer and analgesics. Lab work including CBC, CMP, coags, troponin are unremarkable. EKG reveals normal sinus rhythm with no ST changes. Chest x-ray reveals no acute process. CT of head without contrast reveals no acute process. CTA head and neck revealed no acute process. Negative findings discussed with patient. Upon reevaluation, patient states symptoms have improved. Discussed there are no signs of emergent etiology causing symptoms today and I suspect symptoms are due to cervical muscle strain. Return precautions discussed with patient and he is agreeable to plan. Supportive care discussed. Advised to follow-up with Dr. Tamez. Case was discussed with my ED attending Dr. Jasso. Patient discharged with analgesics. Undiagnosed new problem with uncertain prognosis? @ -No Drug Therapy requiring intensive monitoring for toxicity (Heparin, Nitro, Insuli n, Cardizem)? @ -No Were any procedures done? @ -No Diagnosis/symptom? @ -Cervical neck strain Acute, or Chronic, or Acute on Chronic? @ -Acute Uncomplicated (without systemic symptoms) or Complicated (systemic symptoms)? @ -Uncomplicated Side effects of treatment? @ -No Exacerbation, Progression, or Severe Exacerbation? @ -No Poses a threat to life or bodily function? How? (Chest pain, USA, CO, pneumonia, PE, COPD, DKA, ARF, appy, cholecystitis, CVA, Diverticulitis, Homicidal, Suicidal, threat to staff... and all critical care pts) @ -Not at this time - Lab Data Result diagrams: 08/01/24 16:59 08/01/24 16:59 Lab Results 08/01/24 08/01/24 08/01/24 Range/Units 16:59 16:59 16:59 WBC 7.6 (3.8-10.6) k/uL RBC 5.54 (4.30-5.90) m/uL Hgb 16.2 (13.0-17.5) gm/dL Hct 48.2 (39.0-53.0) % MCV 87.0 (80.0-100.0) fL MCH 29.3 (25.0-35.0) pg MCHC 33.7 (31.0-37.0) g/dL RDW 13.3 (11.5-15.5) % Plt Count 222 (150-450) k/uL MPV 6.6 Neutrophils % 55 % Lymphocytes % 32 % Monocytes % 8 % Eosinophils % 2 % Basophils % 1 % Neutrophils # 4.2 (1.3-7.7) k/uL Lymphocytes # 2.4 (1.0-4.8) k/uL Monocytes # 0.6 (0-1.0) k/uL Eosinophils # 0.2 (0-0.7) k/uL Basophils # 0.1 (0-0.2) k/uL PT 10.5 (10.0-12.5) sec INR 0.9 (<1.2) APTT 24.4 (22.0-30.0) sec Sodium 142 (137-145) mmol/L Potassium 4.2 (3.5-5.1) mmol/L Chloride 110 H (98-107) mmol/L Carbon Dioxide 27 (22-30) mmol/L Anion Gap 5 mmol/L BUN 15 (9-20) mg/dL Creatinine 0.74 (0.66-1.25) mg/dL Est GFR (CKD-EPI)AfAm >90 (>60 ml/min/1.73 sqM) Est GFR (CKD-EPI)NonAf >90 (>60 ml/min/1.73 sqM) Glucose 152 H (74-99) mg/dL Calcium 9.5 (8.4-10.2) mg/dL Total Bilirubin 0.7 (0.2-1.3) mg/dL AST 27 (17-59) U/L ALT 32 (4-49) U/L Alkaline Phosphatase 55 (38-126) U/L Troponin I (0.000-0.034) ng/mL Total Protein 6.7 (6.3-8.2) g/dL Albumin 4.4 (3.5-5.0) g/dL 08/01/24 Range/Units 16:59 WBC (3.8-10.6) k/uL RBC (4.30-5.90) m/uL Hgb (13.0-17.5) gm/dL Hct (39.0-53.0) % MCV (80.0-100.0) fL MCH (25.0-35.0) pg MCHC (31.0-37.0) g/dL RDW (11.5-15.5) % Plt Count (150-450) k/uL MPV Neutrophils % % Lymphocytes % % Monocytes % % Eosinophils % % Basophils % % Neutrophils # (1.3-7.7) k/uL Lymphocytes # (1.0-4.8) k/uL Monocytes # (0-1.0) k/uL Eosinophils # (0-0.7) k/uL Basophils # (0-0.2) k/uL PT (10.0-12.5) sec INR (<1.2) APTT (22.0-30.0) sec Sodium (137-145) mmol/L Potassium (3.5-5.1) mmol/L Chloride (98-107) mmol/L Carbon Dioxide (22-30) mmol/L Anion Gap mmol/L BUN (9-20) mg/dL Creatinine (0.66-1.25) mg/dL Est GFR (CKD-EPI)AfAm (>60 ml/min/1.73 sqM) Est GFR (CKD-EPI)NonAf (>60 ml/min/1.73 sqM) Glucose (74-99) mg/dL Calcium (8.4-10.2) mg/dL Total Bilirubin (0.2-1.3) mg/dL AST (17-59) U/L ALT (4-49) U/L Alkaline Phosphatase (38-126) U/L Troponin I <0.012 (0.000-0.034) ng/mL Total Protein (6.3-8.2) g/dL Albumin (3.5-5.0) g/dL - EKG Data -: EKG Interpreted by Me EKG Comments: EKG reveals normal sinus rhythm with no ST changes. Ventricular rate 75 bpm, UT interval 152, QRS duration 104, QT/QTc 381/409 Disposition Clinical Impression: Neck muscle strain Disposition: HOME SELF-CARE Condition: Stable Instructions (If sedation given, give patient instructions): Cervical Strain (ED) Additional Instructions: Take muscle relaxer as needed for pain. You may also use ibuprofen or Tylenol as needed in addition to the muscle relaxer. Follow-up with Dr. Tamez as discussed. Please return to the Emergency Department if symptoms worsen or any other concerns. Prescriptions: Cyclobenzaprine [Flexeril] 10 mg PO TID PRN #15 tab PRN Reason: Muscle Spasm Is patient prescribed a controlled substance at d/c from ED?: No Referrals: Marc Mejia MD [Primary Care Provider] - 1-2 days Time of Disposition: 18:41
[2024-08-01] MEDS: MORPHINE SULFATE 4 MG/ML SYRINGE IVP STA (17:00)
[2024-08-01] MEDS: ORPHENADRINE 30 MG/ML 2 ML VIAL IVP STA (17:01)
[2024-08-01 17:25] LABS: Basophils # (A) 0.1 k/uL (0-0.2); Basophils % (A) 1 %; Eosinophils # (A) 0.2 k/uL (0-0.7); Eosinophils % (A) 2 %; HCT 48.2 % (39.0-53.0); HGB 16.2 gm/dL (13.0-17.5); Lymphocytes # (A) 2.4 k/uL (1.0-4.8); Lymphocytes % (A) 32 %; MCH 29.3 pg (25.0-35.0); MCHC 33.7 g/dL (31.0-37.0); Mean Platelet Volume 6.6; Monocytes # (A) 0.6 k/uL (0-1.0); Monocytes % (A) 8 %; Neutrophils # (A) 4.2 k/uL (1.3-7.7); Neutrophils % (A) 55 %; Platelet Count 222 k/uL (150-450); RBC 5.54 m/uL (4.30-5.90); RDW 13.3 % (11.5-15.5); WBC 7.6 k/uL (3.8-10.6)
[2024-08-01 17:34] LABS: ALT 32 U/L (4-49); AST 27 U/L (17-59); African American GFR (CKD) >90 (>60 ml/min/1.73 sqM); Albumin 4.4 g/dL (3.5-5.0); Alkaline Phosphatase 55 U/L (38-126); Anion Gap 5 mmol/L; Blood Urea Nitrogen 15 mg/dL (9-20); Calcium 9.5 mg/dL (8.4-10.2); Carbon Dioxide 27 mmol/L (22-30); Chloride 110 mmol/L (98-107); Glucose 152 mg/dL (74-99); Non-African American GFR(CKD) >90 (>60 ml/min/1.73 sqM); Potassium 4.2 mmol/L (3.5-5.1); Sodium 142 mmol/L (137-145); Total Bilirubin 0.7 mg/dL (0.2-1.3); Total Protein 6.7 g/dL (6.3-8.2)
[2024-08-01 17:37] LABS: INR 0.9 (<1.2); Partial Thromboplastin Time 24.4 sec (22.0-30.0); Prothrombin Time 10.5 sec (10.0-12.5)
--- NOTE | 2024-08-01 17:44 | XR ---
EXAMINATION TYPE: XR chest 2V DATE OF EXAM: 08/01/2024 5:18 PM CLINICAL INDICATION: Male, 49 years old with history of right shoulder/back pain; H COMPARISON: Chest radiographs from 03/16/2023 TECHNIQUE: XR chest 2V Frontal view of the chest. FINDINGS: Lungs/Pleura: There is no evidence of pleural effusion, focal consolidation, or pneumothorax. Pulmonary vascularity: Unremarkable. Heart/mediastinum: Cardiomediastinal silhouette is unremarkable. Musculoskeletal: No acute osseous pathology. There is fixation hardware in the lower cervical spine. IMPRESSION: No acute cardiopulmonary disease/process. [facility], , 08/01/2024 5:41 PM
--- NOTE | 2024-08-01 18:07 | CT ---
EXAMINATION TYPE: CT angio head neck CT DLP: Combined DLP of 1937.3 mGycm, Automated exposure control for dose reduction was used. DATE OF EXAM: 08/01/2024 5:48 PM COMPARISON: CT head same day. CLINICAL INDICATION: Male, 49 years old with history of headache x 3 days, vision changes; PHH, Heada martin x 3 days, vision changes. TECHNIQUE: Axially acquired helical CT angiogram of the head and neck was obtained with contrast. Axi al images are supplemented with 3D reconstructions and MIP images which were post-processed at an in dependent workstation. NASCET criteria used. Contrast used:65 cc mL of Isovue 370 with IV Contrast, Oral contrast used: None. FINDINGS: CTA HEAD: No evidence of acute intracranial hemorrhage, mass effect, or midline shift. The ventricles, sulci, a nd cisterns are unremarkable. The visualized portions of the internal carotid arteries, middle cerebral arteries, anterior cerebral arteries, and posterior cerebral arteries are patent. The basilar and vertebral arteries are patent. CTA NECK: Right Carotid System: The common carotid artery and external carotid artery are patent. The carotid bifurcation demonstrate s no evidence of hemodynamically significant stenosis. The remaining portions of the internal carotid artery demonstrate normal size without significant narrowing. Left Carotid System: The common carotid artery and external carotid artery are patent. The carotid bifurcation demonstrate s no evidence of hemodynamically significant stenosis. The remaining portions of the internal carotid artery demonstrate normal size without significant narrowing. Vertebral arteries are patent without evidence hemodynamically significant stenosis. There is a three-vessel aortic arch. The origins of the great vessels are patent. No evidence of hemo dynamically significant stenosis. Upper thorax: Paraseptal emphysema changes most pronounced in the right lung. IMPRESSION: 1. No evidence of dissection of the cervical internal carotid arteries or vertebral arteries or any e vidence of significant stenosis at the carotid bifurcations. 2. No evidence of intracranial high-grade stenosis or intracranial aneurysm. 3. Mild paraseptal emphysema. [facility], , 08/01/2024 6:05 PM
--- NOTE | 2024-08-01 18:18 | CT ---
EXAMINATION TYPE: CT brain wo con CT DLP: Combined DLP of 1937.3 mGycm, Automated exposure control for dose reduction was used. DATE OF EXAM: 08/01/2024 5:32 PM COMPARISON: 03/16/2023. CLINICAL INDICATION: Male, 49 years old with history of headache x 3 days, vision changes, Headache x 3 days, vision changes. TECHNIQUE: Brain: Axial CT images of the brain were obtained with coronal and sagittal reformats created and rev iewed. Contrast used: None. Oral contrast used: None. FINDINGS: Brain: Extra-axial spaces: No abnormal extra-axial fluid collections. Ventricular system: Within normal limits Cerebral parenchyma: No acute intraparenchymal hemorrhage or mass effect. The lynn-white junction is well differentiated. Cerebellum: Unremarkable. Mass effect: No evidence of midline shift. Intracranial vasculature: unremarkable Soft tissues: Normal. Calvarium/osseous structures: No depressed skull fracture. Paranasal sinuses and mastoid air cells: Mild scattered paranasal sinus disease. Visualized orbits: Orbital contents are intact. IMPRESSION: No acute intracranial process. [facility], , 08/01/2024 6:16 PM
[2024-08-01 18:50] VITALS: BP 137/96; PULSE 74
== END 2024-08-01 18:50 | disposition home or self-care (01) ==
LOC: EC 15:38 → SUPCPDRO 15:38 → EC 18:50
CPT/HCPCS: 36415; 70450; 70496; 70498; 71046; 80053; 84484; 85025; 85610; 85730; 93005; 96374; 96375; 99283

== ENCOUNTER → 2025-01-29 | Outpatient (CLI) | payer OTHER ==
--- NOTE | 2025-01-29 17:02 | US ---
EXAMINATION TYPE: US carotid duplex BILAT DATE OF EXAM: 01/29/2025 COMPARISON: CT: 08/01/24 CLINICAL INDICATION: Male, 49 years old with history of R20.2 PARESTHESIA OF SKIN; vision problems Additional History: .... TECHNIQUE: Grayscale, color Doppler and spectral Doppler evaluation of the bilateral carotid systems and vertebral arteries. Indirect Doppler criteria was utilized. FINDINGS: EXAM MEASUREMENTS: RIGHT: Peak Systolic Velocity (PSV) cm/sec ----- Right CCA: 44.1 ----- Right ICA: 65.8 ----- Right ECA: 89.2 ICA/CCA ratio: 1.4 RIGHT: End Diastole cm/sec ----- Right CCA: 18.0 ----- Right ICA: 31.9 ----- Right ECA: 25.7 LEFT: Peak Systolic Velocity (PSV) cm/sec ----- Left CCA: 52.6 ----- Left ICA: 64.2 ----- Left ECA: 75.2 ICA/CCA ratio: 1.2 LEFT: End Diastole cm/sec ----- Left CCA: 19.7 ----- Left ICA: 33.2 ----- Left ECA: 26.0 VERTEBRALS (direction of flow): Right Vertebral: not seen Left Vertebral: Antegrade Rhythm: Normal WIRE REPAIRER NOTES: no plaque or elevated velocities Color Doppler imaging shows patency with blood flow throughout the carotid artery. Spectral waveforms are within normal limits. IMPRESSION: Right: No hemodynamically significant stenosis. The right vertebral artery is not visualized. Left: No hemodynamically significant stenosis. Criteria for Assigning % of Stenosis / Diameter reduction (Estimation based on the indirect measurements of the internal carotid artery velocities (ICA PSV). 1. Normal (no stenosis)=ICA PSV < 125 cm/s: ratio < 2.0: ICA EDV<40 cm/s. 2. Less than 50% stenosis=ICA PSV < 125 cm/s: ratio < 2.0: ICA EDV<40 cm/s. 3. 50 to 69% stenosis=ICA PSV of 125 to 230 cm/s: ration 2.0 ? 4.0: ICA EDV 40-100 cm/s. 4. Greater than 70% stenosis to near occlusion= ICA PSV > 230 cm/s: ratio > 4.0: ICA EDV > 100 cm/s. 5. Near occlusion= ICA PSV velocities may be low or undetectable: variable ratio and ICA EDV. 6. Total occlusion=unable to detect flow. [facility], , 01/29/2025 4:59 PM
== END | disposition home or self-care (01) ==
LOC: RADUSWWP 15:59
PROVIDERS: ATTEND Family Medicine
DX: I65.23 Occlusion and stenosis of bilateral carotid arteries (principal)
CPT/HCPCS: 93880

== ENCOUNTER 2025-05-25 06:01 | Observation (INO) | payer OTHER ==
[2025-05-25 06:10] VITALS: TEMP 98
--- NOTE | 2025-05-25 06:30 | ED ---
Chest Pain HPI - General Chief Complaint: Chest Pain Stated Complaint: High Blood Pressure Time Seen by Provider: 05/25/25 06:12 Source: patient, RN notes reviewed Mode of arrival: ambulatory Limitations: no limitations - History of Present Illness Initial Comments: This is a 49-year-old male who presents to the emergency department for chest pain. States that he woke up around 330 to 4 AM and was just feeling very "off". He went to take a shower and states that he continued to feel strange and then developed chest pressure. He did have a similar episode 5 days ago, however it was less severe. He has been struggling to get his blood pressure under control. States that he followed up with his primary care provider last week about this and they have been trying to make medication adjustments. Denies any headaches or visual changes associated with this. He does report some shortness of breath. Denies any history of heart attacks or other cardiac issues. MD Complaint: chest pain - Related Data Home Medications Medication Instructions Recorded Confirmed HYDROcodone/APAP 5-325MG [[place] 1 tab PO BID PRN 05/11/22 05/25/25 5-325] Losartan-Hctz 50-12.5 mg [Hyzaar 1 tab PO DAILY 03/16/23 05/25/25 50-12.5] Allergies Allergy/AdvReac Type Severity Reaction Status Date / Time No Known Allergies Allergy Verified 05/25/25 10:28 Review of Systems ROS Statement: Those systems with pertinent positive or pertinent negative responses have been documented in the HPI. ROS Other: All systems not noted in ROS Statement are negative. Past Medical History Past Medical History: Hypertension, Osteoarthritis (OA) Additional Past Medical History / Comment(s): pain "middle of back, L shoulder blade and down left arm into hand" History of Any Multi-Drug Resistant Organisms: None Reported Past Surgical History: Orthopedic Surgery Additional Past Surgical History / Comment(s): RT WRIST ganglion cyst removal. PAIN CLINIC INJECTIONS-. EGD, colonoscopy. NECK SURGERY-spinal fusion c5,6,7 Past Anesthesia/Blood Transfusion Reactions: Previous Problems w/ Anesthesia Additional Past Anesthesia/Blood Transfusion Reaction / Comment(s): WOKE UP DURING WRIST SX Past Psychological History: Depression, PTSD Smoking Status: Former smoker Past Alcohol Use History: None Reported Past Drug Use History: None Reported - Past Family History Mother Family Medical History: Cancer, Hypertension Additional Family Medical History / Comment(s): skin CA removed General Exam Limitations: no limitations General appearance: alert, in no apparent distress Head exam: Present: atraumatic, normocephalic, normal inspection Respiratory exam: Present: normal lung sounds bilaterally. Absent: respiratory distress, wheezes, rales, rhonchi, stridor Cardiovascular Exam: Present: regular rate, normal rhythm Neurological exam: Present: alert, oriented X3, CN II-XII intact Psychiatric exam: Present: normal affect, normal mood Skin exam: Present: warm, dry, intact, normal color. Absent: rash Course Vital Signs 05/25/25 05/25/25 05/25/25 06:07 06:21 06:45 Temperature 98.0 F Pulse Rate 78 70 68 Respiratory 18 16 16 Rate Blood Pressure 145/108 159/111 136/96 O2 Sat by Pulse 96 96 98 Oximetry 05/25/25 05/25/25 05/25/25 08:06 11:11 13:00 Temperature Pulse Rate 64 60 68 Respiratory 18 20 20 Rate Blood Pressure 118/81 147/98 127/93 O2 Sat by Pulse 96 96 96 Oximetry Chest Pain MDM - MDM This is a 49 year old male who presents to the emergency department for chest pain. Was pt. sent in by a medical professional or institution? @ -No Did you speak to anyone other than the patient for history? @ -No Did you review nursing and triage notes? @ -Yes, and I agree, it is accurate with regards to the patient's symptoms. Were old charts reviewed? @ -No Differential Diagnosis? @ -Differential Chest Pain: Stable Angina, Unstable Angina, STEMI, NSTEMI Aortic Dissection, Pneumothorax, Musculoskeletal, Esophageal Spasm GERD, Cholecystitis, Pancreatitis, Zoster, this is not meant to be an all-inclusive list. EKG interpreted by me (3pts min.)? @ -EKG interpreted by me demonstrating the following: Sinus rhythm. Ventricular rate 71 bpm, [place] interval 150 ms, QRS duration 101 ms, QTc 397 ms. X-rays interpreted by me (1pt min.)? @ -Chest x-ray obtained. My interpretation identifies interstitial densities. CT interpreted by me (1pt min.)? @ -Not obtained U/S interpreted by me (1pt. min.)? @ -Not obtained What testing was considered but not performed? (CT, X-rays, U/S, labs)? Why? @ -None What meds were considered but not given? Why? @ -None Did you discuss the management of the patient with other professionals? @ -Yes, Dr. Tomlinson, who accepts the patient for admission. Did you reconcile home meds? @ -No Was smoking cessation discussed for >3mins.? @ -I discussed smoking cessation for greater than 3 minutes. The risk of smoking were discussed with the patient including but not limited to risks of cancer, stroke, coronary artery disease and COPD. Also discussed with patient were multiple methods of quitting smoking. Lastly we discussed the financial cost of smoking. Was critical care preformed (if so, how long)? @ -No Were there social determinants of health that impacted care today? How? (Homelessness, low income, unemployed, alcoholism, drug addiction, transportation, low edu. Level, literacy, decrease access to med. care, [facility], rehab)? @ -No Was there de-escalation of care discussed even if they declined? (Discuss DNR or withdrawal of care, Hospice)? @ -No What co-morbidities impacted this encounter? (DM, HTN, Smoking, COPD, CAD, Cancer, CVA, Hep., AIDS, mental health diagnosis, sleep apnea, morbid obesity)? @ -HTN, smoking Was patient admitted / discharged? @ -Admitted. Patient was given aspirin and nitroglycerin on arrival for his symptoms. He does feel like the nitroglycerin relieved his pain and pressure almost immediately. Lab work unremarkable. Troponin negative. Chest x-ray demonstrated interstitial densities and they advised consideration for mild pulmonary vascular congestion versus bronchitis or asthma. BNP undetectable and patient is not presenting with signs or symptoms of fluid overload to suggest CHF. Due to his symptom description, risk factors, and relief with nitroglycerin, I had wanted to admit the patient for cardiac obs. However, he had initially declined admission but was agreeable to repeat troponin. Repeat troponin obtained at the 3-hour louise. This was negative as well. However, on reevaluation of the patient he advised that he was now not comfortable going home and wanted to be evaluated by cardiology. Patient subsequently admitted to medicine for cardiac observation. Consult placed for cardiology. Case discussed with ED attending Dr. Victor. Undiagnosed new problem with uncertain prognosis? @ -None Drug Therapy requiring intensive monitoring for toxicity (Heparin, Nitro, Insulin, Cardizem)? @ -None Were any procedures done? @ -None Diagnosis/symptom? @ -Chest pain Acute, or Chronic, or Acute on Chronic? @ -Acute Uncomplicated (without systemic symptoms) or Complicated (systemic symptoms)? @ -Uncomplicated Side effects of treatment? @ -None Exacerbation, Progression, or Severe Exacerbation] @ -Not applicable Poses a threat to life or bodily function? @ -This will depend on the cause Disposition Clinical Impression: Chest pain Disposition: LEFT AGAINST MEDICAL ADVICE
[2025-05-25 06:38] LABS: Basophils # (A) 0.07 10*3/uL (0.00-0.10); Basophils % (A) 0.9 %; Eosinophils # (A) 0.18 10*3/uL (0.04-0.35); Eosinophils % (A) 2.3 %; HCT 45.5 % (39.6-50.0); HGB 15.9 g/dL (13.0-17.0); Lymphocytes # (A) 3.52 10*3/uL (0.90-5.00); Lymphocytes % (A) 45.1 %; MCH 29.3 pg (27.0-32.0); MCHC 34.9 g/dL (32.0-37.0); MCV 83.9 fL (80.0-97.0); Monocytes # (A) 0.74 10*3/uL (0.20-1.00); Monocytes % (A) 9.5 %; Neutrophils # (A) 3.24 10*3/uL (1.80-7.70); Neutrophils % (A) 41.4 %; Platelet Count 208 10*3/uL (140-440); RBC 5.42 10*6/uL (4.40-5.60); RDW 13.3 % (11.5-14.5); WBC 7.81 10*3/uL (4.50-10.00)
[2025-05-25] MEDS: ASPIRIN 81 MG PO STA (06:44)
[2025-05-25] MEDS: NITROGLYCERIN SL TABS 0.4 MG TAB SUBLINGUAL STA (06:44)
[2025-05-25 06:55] LABS: ALT 33 U/L (4-49); AST 33 U/L (17-59); African American GFR (CKD) >90 (>60 ml/min/1.73 sqM); Albumin 4.6 g/dL (3.5-5.0); Alkaline Phosphatase 67 U/L (38-126); Anion Gap 11 mmol/L; Blood Urea Nitrogen 17 mg/dL (9-20); Calcium 9.4 mg/dL (8.4-10.2); Carbon Dioxide 21 mmol/L (22-30); Chloride 107 mmol/L (98-107); Glucose 116 mg/dL (74-99); Magnesium 2.1 mg/dL (1.6-2.3); Non-African American GFR(CKD) >90 (>60 ml/min/1.73 sqM); Potassium 4.2 mmol/L (3.5-5.1); Sodium 139 mmol/L (137-145); Total Protein 6.9 g/dL (6.3-8.2)
--- NOTE | 2025-05-25 07:13 | XR ---
EXAMINATION TYPE: XR chest 2V DATE OF EXAM: 05/25/2025 6:34 AM COMPARISON: 08/01/2024 CLINICAL INDICATION: Male, 49 years old with history of Chest Pain, , TECHNIQUE: PA and lateral views FINDINGS: Heart upper limits of normal in size. Interstitial prominence and peribronchial cuffing is present. N o consolidation or pleural effusion. ACDF hardware. IMPRESSION: Borderline heart size with mild interstitial densities. Consider mild pulmonary vascular congestion v ersus bronchitis or asthma. [facility], Workstation: [facility], 05/25/2025 7:10 AM
[2025-05-25 07:30] LABS: INR 0.9 (<1.2); Partial Thromboplastin Time 23.8 sec (22.0-30.0); Prothrombin Time 10.6 sec (10.0-12.5)
[2025-05-25] MEDS: NITROGLYCERIN OINT 1 INCH/GM PACKET TOPICAL STA (08:07)
[2025-05-25] MEDS ORDERED: NALOXONE 0.4 MG/ML 1 ML VIAL IV PRN (10:22)
[2025-05-25] MEDS ORDERED: KETOROLAC 15 MG/ML 1 ML VIAL IVP PRN (10:22)
[2025-05-25] MEDS ORDERED: ONDANSETRON 4 MG/2 ML VIAL IVP PRN (10:22)
[2025-05-25] MEDS ORDERED: MORPHINE SULFATE 4 MG/ML SYRINGE IV PRN (10:22)
[2025-05-25 11:13] VITALS: RESP 20
[2025-05-25] MEDS ORDERED: HYDROcodone/APAP 5-325MG 1 EACH TAB PO PRN (11:34)
[2025-05-25 13:01] VITALS: BP 127/93; PULSE 68
[2025-05-25] MEDS: ATORVASTATIN 40 MG TAB PO SCH (13:01)
[2025-05-25] MEDS: ACETAMINOPHEN TAB 325 MG TAB PO PRN (13:01)
[2025-05-25] MEDS: NICOTINE 21MG/24HR PATCH TRANSDERM SCH (13:02)
[2025-05-25] MEDS: ENOXAPARIN 40 MG/0.4 ML SYRINGE SQ SCH (13:02)
--- NOTE | 2025-05-25 13:02 | P.HPIM ---
History of Present Illness H&P Date: 05/25/25 Chief Complaint: Chest pain The patient is a 49-year-old male with a past medical history of hypertension (recently started on losartan about 2 years ago) who presented to the hospital with complaints of intermittent chest pressure/pain that began this morning. Patient mentions for the past week he has felt significant fatigue and weakness with some shortness of breath. He says that he wakes up sometimes short of breath as well. He also mentions some swelling in his legs for the past couple of years. This morning he woke up and he had chest pressure/pain that he elvi cribes as someone sitting on his chest that radiates to his left arm. He says that he has had some intermittent chest pressure worse with exertion before but it has not been this bad in the past. He says the episodes of pain today come and go with no obvious trigger and his last episode of pain was about 1 hour ago. When he woke up this morning he took his blood pressure and it was 171/114. He took his dose of losartan but the pain did not go away so this prompted him to go to the ER. The patient denies any significant past medical history other than a neck operation many years ago. He mentions a 18-[id number]-hehc smoking history and that he recently quit vaping and has been using nicotine lozenges/patches. The patient denies any cough, abdominal pain, nausea, vomiting, diarrhea or any other symptoms. He also denies any recent sick contacts or recent travel. In the ED, the patient was afebrile, pulse was 78, respiratory rate: 18, blood pressure: 145/108, saturating 96% on room air. EKG showed normal sinus rhythm without any ST elevations or depressions. Chest x-ray showed borderline heart size with mild interstitial densities potentially due to mild pulmonary vascular congestion versus bronchitis or asthma. Labs drawn were mostly unremarkable except for a slight metabolic acidosis: Bicarb: 21, anion gap: 11. Troponin was nonelevated on initial draw and rechecks. BNP was below 20. Cardiology was consulted in the ED and the patient was placed on telemetry. Review of Systems Negative except for as listed above in HPI. Past Medical History Past Medical History: Hypertension, Osteoarthritis (OA) Additional Past Medical History / Comment(s): pain "middle of back, L shoulder blade and down left arm into hand" History of Any Multi-Drug Resistant Organisms: None Reported Past Surgical History: Orthopedic Surgery Additional Past Surgical History / Comment(s): RT WRIST ganglion cyst removal. PAIN CLINIC INJECTIONS-. EGD, colonoscopy. NECK SURGERY-spinal fusion c5,6,7 Past Anesthesia/Blood Transfusion Reactions: Previous Problems w/ Anesthesia Additional Past Anesthesia/Blood Transfusion Reaction / Comment(s): WOKE UP DURING WRIST SX Past Psychological History: Depression, PTSD Smoking Status: Former smoker Past Alcohol Use History: None Reported Past Drug Use History: None Reported - Past Family History Mother Family Medical History: Cancer, Hypertension Additional Family Medical History / Comment(s): skin CA removed Medications and Allergies Home Medications Medication Instructions Recorded Confirmed Type HYDROcodone/APAP 5-325MG [[place] 1 tab PO BID PRN 05/11/22 05/25/25 History 5-325] Losartan-Hctz 50-12.5 mg [Hyzaar 1 tab PO DAILY 03/16/23 05/25/25 History 50-12.5] Allergies Allergy/AdvReac Type Severity Reaction Status Date / Time No Known Allergies Allergy Verified 05/25/25 10:28 Physical Exam Vitals: Vital Signs Temp Pulse Resp BP Pulse Ox 05/25/25 11:11 60 20 147/98 96 05/25/25 08:06 64 18 118/81 96 05/25/25 06:45 68 16 136/96 98 05/25/25 06:21 70 16 159/111 96 05/25/25 06:07 98.0 F 78 18 145/108 96 Intake and Output 05/24/25 05/25/25 05/25/25 22:59 06:59 14:59 Other: Weight 99.79 kg Vital signs reviewed General: non toxic, mild distress, appears at stated age, normal weight Derm: no unusual rashes/lesions, warm. Head: atraumatic, normocephalic, symmetric Eyes: EOMI, anicteric sclera, pupils equal round reactive to light ENT: Pharyngeal erythema noted. Nose and ears atraumatic Cardiovascular: Regular rate and rhythm. No murmur. No noticeable edema to lower extremities bilaterally. Lungs: Crackles appreciated bilaterally especially to the bases. Intermittent cough on exam. No wheezing. Abdominal: Obese abdomen. Mildly distended. No tenderness to palpation in all 4 quadrants. Ext: No visible rashes or discoloration. No noticeable edema as listed above. Neuro: CN II-XI grossly intact, no gross focal neuro deficits Psych: Alert, oriented to person, place, and time Results CBC & Chem 7: 05/25/25 06:21 05/25/25 06:21 Labs: Abnormal Lab Results - Last 24 Hours (Table) 05/25/25 05/25/25 Range/Units 06:21 06:21 MPV 9.1 L (9.5-12.2) fL Immature Gran # 0.06 H (0.00-0.04) 10*3/uL Carbon Dioxide 21 L (22-30) mmol/L Glucose 116 H (74-99) mg/dL Assessment and Plan Assessment: Assessment/Plan: 1. Typical chest pain likely secondary to stable angina [id number] smoking history # EKG in the ER negative for acute ST elevations or depressions. # Patient received nitroglycerin and aspirin in the ED - Cardiology consulted - Continue telemetry - Echo ordered - Ordered aspirin 81 mg p.o. daily - Ordered atorvastatin 40 mg p.o. daily - Ordered A1c, TSH, lipid panel, and viral panel - Ordered nicotine patch 2. History of hypertension - Continue home losartan 50 p.o. once daily - Continue to monitor blood pressure while admitted DVT prophylaxis: Lovenox 40 mg SQ CODE STATUS: Full code Emeterio Cuadra MD PGY-1 TY Dictation was produced using [employer] dictation software. please excuse any grammatical, word or spelling errors. I have seen and evaluated the patient today. Discussed with the resident and agree with the residents finding and plan as documented in the resident's note. Changes highlighted in blue font.
[2025-05-25 14:06] LABS: RSV Not Detected (Not Detectd)
--- NOTE | 2025-05-25 14:45 | P.DS ---
Providers Date of admission: 05/25/25 11:53 Expected date of discharge: 05/25/25 Attending physician: Eric Tomlinson Consults: 05/25/25 10:22 Consult Physician Urgent Consulting Provider: Lacho Beard Consult Reason/Comments: Chest pain Do you want consulting provider notified?: Yes Primary care physician: Stated None Hospital Course: Patient left AMA Plan - Discharge Summary New Discharge Prescriptions: No Action Losartan-Hctz 50-12.5 mg [Hyzaar 50-12.5] 1 tab PO DAILY HYDROcodone/APAP 5-325MG [[place] 5-325] 1 tab PO BID PRN PRN Reason: Pain Discharge Medication List HYDROcodone/APAP 5-325MG [[place] 5-325] 1 tab PO BID PRN 05/11/22 [History] Losartan-Hctz 50-12.5 mg [Hyzaar 50-12.5] 1 tab PO DAILY 03/16/23 [History] Follow up Appointment(s)/Referral(s): None,Stated [Primary Care Provider] - 1-2 days Discharge Disposition: LEFT AGAINST MEDICAL ADVICE
[2025-05-26] MEDS ORDERED: ASPIRIN 81 MG PO SCH (09:00)
[2025-05-26] MEDS ORDERED: LOSARTAN-HCTZ 50-12.5 MG 1 EACH TAB PO SCH (09:00)
[2025-05-26] MEDS ORDERED: PANTOPRAZOLE 40 MG/10 ML VIAL IV SCH (09:00)
== END 2025-05-25 14:22 | disposition left against medical advice (07) ==
LOC: EC 06:01 → 6NMEDSUR 11:53
PROVIDERS: ADMIT Student in an Organized Health Care Education/Training Program; ATTEND Student in an Organized Health Care Education/Training Program
DX: R07.89 Other chest pain (principal); I10 Essential (primary) hypertension; E87.20 Acidosis, unspecified; R22.43 Localized swelling, mass and lump, lower limb, bilateral; M79.602 Pain in left arm; Z79.899 Other long term (current) drug therapy; Z53.29 Procedure and treatment not carried out because of patient's decision for other reasons; F17.210 Nicotine dependence, cigarettes, uncomplicated; Z71.6 Tobacco abuse counseling
CPT/HCPCS: 96372; 99285; 36415; 93005; 83880; 80053; 84443; 83735; 84484; 85025; 85610; 85730; 83036; 87636; 71046; G0378; S4990; J1650